=== PATIENT | female | born 1960 | race Caucasian/White ===

== ENCOUNTER 2020-07-08 19:38 | Inpatient (IN) | payer MEDICARE, OTHER ==
[~2020-07-08] VITALS: Ht 162.6 cm; Wt 84.8 kg
--- NOTE | 2020-07-08 19:43 | NUR ---
pt BIB RA93, appears to be in distress, c/o of 01/24 hip pain. MD Castro in room to examine patient. 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
--- NOTE | 2020-07-08 19:52 | NUR ---
electrical engineering technologist in room with patient for x-ray.
--- NOTE | 2020-07-08 20:28 | NUR ---
field crop technical officer in room to take patient to CT scan.
[2020-07-08] MEDS ORDERED: apidra (20:29)
[2020-07-08] MEDS ORDERED: OXYC5CAP18 PO (20:29)
--- NOTE | 2020-07-08 20:30 | NUR ---
CINTIA Kapadia called for patient room. Patient will be assigned to med-surg room 310.
[2020-07-08 20:32] LABS: BASOPHILS % (AUTO) 0.3 % (0.0-2.0); HEMATOCRIT 38.9 % (31.2-41.9); LYMPHOCYTES % (AUTO) 10.9 % (20.5-51.5); MEAN CORPUSCULAR HEMOGLOBIN 32.3 uug (24.7-32.8); MEAN CORPUSCULAR HGB CONC 33 g/dL (32.3-35.6); MEAN CORPUSCULAR VOLUME 96.8 fL (75.5-95.3); MONOCYTES # (AUTO) 0.6 K/uL (2.0-10.0); MONOCYTES % (AUTO) 6.8 % (0.0-11.0); NEUTROPHILS # (AUTO) 7.1 K/uL (1.8-8.9); PLATELET COUNT (AUTO) 189 K/uL (179-408); RED BLOOD CELL COUNT(AUTO) 4.02 MIL/uL (3.63-4.92); WHITE BLOOD COUNT (AUTO) 8.7 K/uL (3.8-11.8)
[2020-07-08 20:38] LABS: CREATININE 0.8 mg/dL (0.6-1.3); POTASSIUM 4.2 mmol/L (3.5-5.1)
--- NOTE | 2020-07-08 20:40 | NUR ---
Patient refused guillen catheter. MD Castro aware.
[2020-07-08 20:44] LABS: BILIRUBIN,DIRECT 0.1 mg/dL (0.0-0.2); BILIRUBIN,TOTAL 0.3 mg/dL (0.2-1.0); TOTAL PROTEIN, SERUM 6.5 g/dL (6.4-8.2)
[2020-07-08] MEDS ORDERED: MORPHINE SULFATE 2 MG/1 ML DISP.SYRIN ONE ×2 (21:17→22:30)
--- NOTE | 2020-07-08 21:28 | NUR ---
Paged Dr. Rutledge for ortho consult, pending call-back.
[2020-07-08] MEDS ORDERED: MORPHINE SULFATE 2 MG/1 ML DISP.SYRIN IV ONE ×2 (21:30→22:30)
--- NOTE | 2020-07-08 21:38 | NUR ---
Patient requested positional change to sit upright, OK'ed per MD Castro. Patient seated upright and cold pack applied to her left hip. Patient states relief.
--- NOTE | 2020-07-08 22:20 | NUR ---
Patient states feeling pain and nausea. MD Castro notified.
[2020-07-08] MEDS ORDERED: ONDANSETRON 4 MG/2 ML VIAL ONE (22:29)
[2020-07-08] MEDS ORDERED: ONDANSETRON 4 MG/2 ML VIAL IV ONE (22:30)
--- NOTE | 2020-07-08 22:34 | NUR ---
Dr. Rutledge paged for the third time, pending call-back.
--- NOTE | 2020-07-08 23:04 | NUR ---
[facility] medical group called, pending call-back from admitting doctor Dr. Chidi Engle.
--- NOTE | 2020-07-08 23:08 | NUR ---
Report given to CINTIA Lang, patient will be going to med/surg room 310 upon admission.
--- NOTE | 2020-07-09 00:08 | NUR ---
[facility] medical group called again, MD Fay toure, pending callback.
--- NOTE | 2020-07-09 00:13 | NUR ---
MD Aponte called back, call transferred to BOBBY Castro.
--- NOTE | 2020-07-09 00:30 | NUR ---
DURING ER REPORT, RN REPORTED THAT PATIENT IS REFUSING F/C INSERTION. ER WAS UNABLE TO GET A UA. PATIENT INFORMED THAT UA NEEDS TO BE COLLECTED. PATIENT IS REFUSING FOR F/C INSERTION. DISTRICT SALES LEADER NOTIFIED. PATIENT IS A/O X4.
--- NOTE | 2020-07-09 00:40 | NUR ---
Pt. admitted to medical-surgical unit room 310, under care of Dr. Aponte and RN Precious. Belongs List completed, paperwork with patient, transported via gurney to room.
[2020-07-09] MEDS ORDERED: MORPHINE SULFATE 2 MG/1 ML DISP.SYRIN IV PRN (00:45)
[2020-07-09] MEDS ORDERED: ACETAMINOPHEN 325 MG TABLET PO PRN (00:45)
[2020-07-09] MEDS ORDERED: INSULIN REGULAR, HUMAN 300 UNITS/3 ML VIAL SQ PRN (00:45)
[2020-07-09] MEDS ORDERED: DEXTROSE 50% 50 ML DISP.SYRIN IV PRN (00:45)
[2020-07-09] MEDS ORDERED: Z GUARD REMEDY PASTE 57 GM TUBE TOP PRN (00:45)
[2020-07-09] MEDS ORDERED: ZOLPIDEM 5 MG TABLET PO PRN (00:45)
--- NOTE | 2020-07-09 00:45 | NUR ---
RECEIVED PATIENT VIA GURNEY FROM ER. PATIENT IS A/O X4. C/O SEVERE PAIN IN LEFT HIP UPON ARRIVAL TO FLOOR. VS WNL. PATIENT GIVEN MORPHINE 4MG IV PER ROBOTYPE OPERATOR. DENIES ANY SOB. NO RESP. DISTRESS NOTED. H/L INTACT AND PATENT, NOTED TO LEFT FA #20 GAUGE. ORIENTED TO ROOM AND CALL LIGHT. CALL LIGHT IN REACH. ALL NEEDS ATTENDED. WILL CONTINUE TO MONITOR AND ASSESS.
[2020-07-09 01:32] VITALS: BP 123/53
[2020-07-09] MEDS: HYDROCODONE/APAP 5-325MG TABLET PO PRN ×4 (02:33→23:27)
--- NOTE | 2020-07-09 02:40 | NUR ---
RECEIVED CALL FROM DR. FARLEY. PATIENT WILL NEED AN "IM NAILING," BUT PATIENT NEEDS TO BE MEDICALLY CLEARED BEFORE SURGERY. MEDICAL APPOINTMENT SCHEDULER NOTIFIED. ALL NEEDS ATTENDED.
[2020-07-09] MEDS: BLOOD SUGAR DIAGNOSTIC 1 EACH STRIP VI SCH ×5 (03:10→21:02)
--- NOTE | 2020-07-09 03:15 | NUR ---
PATIENT AWAKE IN BED. PATIENT HAS INSULIN PUMP, NOT WORKING AT THIS TIME , "HER REMOTE FOR THE PUMP IS AT HOME." PATIENT REQUESTING FOR HER BS TO BE TAKEN. BS 291. PATIENT ASKING FOR "2 UNITS" OF INSULIN. CALLED OUT TO DR. JOHNSON FOR FURTHER ORDERS. ALL NEEDS ATTENDED. WILL CONTINUE TO MONITOR AND ASSESS.
[2020-07-09 04:03] VITALS: BP 124/59
--- NOTE | 2020-07-09 05:54 | NUR ---
PATIENT AWAKE IN BED. F/C INSERTED AND UA COLLECTED AND SENT TO LAB. VS WNL. PATIENT HAS BRUISING NOTED TO LEFT BUTTOCKS/HIP. PATIENT REFUSED FOR PICTURES TO BE TAKEN. WILL CONTINUE TO MONITOR AND ASSESS.
[2020-07-09 06:42] LABS: *BILIRUBIN,URIN NEGATIVE (NEGATIVE); *BLOOD, URINE NEGATIVE (NEGATIVE); *CLARITY,URINE CLEAR (CLEAR); *COLOR,URINE YELLOW (YELLOW); *KETONES,URINE NEGATIVE (NEGATIVE); *UROBILINOGEN,URINE 0.2 E.U./dl (NORMAL); LEUKOCYTE ESTERASE ,URINE NEGATIVE (NEGATIVE); NITRITE, URINE NEGATIVE (NEGATIVE); UGLUCOSE 2+ (NEGATIVE)
--- NOTE | 2020-07-09 07:30 | NUR ---
Patient is alert and oriented. No respiratory distress. LFA heplock intact and patent. Adan catheter intact and patent draining yellow urine. No hematuria noted. No complaint at this time. Kept comfortable. Safety precautions in place. Call light within reach. Will continue to monitor.
[2020-07-09] MEDS: INSULIN REGULAR, HUMAN 300 UNIT/3 ML VIAL SQ PRN ×3 (07:58→18:52)
[2020-07-09] MEDS: MORPHINE SULFATE 4 MG/1 ML DISP.SYRIN IV PRN ×4 (10:13→21:35)
--- NOTE | 2020-07-09 10:17 | NUR ---
Spoke to Harriet at surgery. Patient will have IM Nailing Left hip tomorrow at 0930, NPO midnight tonight. Patient is made aware and verbalized she will sign consent when Dr. Rutledge explains to her the procedure. Will continue to monitor.
[2020-07-09 11:28] LABS: *BILIRUBIN,URIN NEGATIVE (NEGATIVE); *BLOOD, URINE NEGATIVE (NEGATIVE); *CLARITY,URINE CLEAR (CLEAR); *COLOR,URINE YELLOW (YELLOW); *KETONES,URINE NEGATIVE (NEGATIVE); *UROBILINOGEN,URINE 0.2 E.U./dl (NORMAL); LEUKOCYTE ESTERASE ,URINE NEGATIVE (NEGATIVE); NITRITE, URINE NEGATIVE (NEGATIVE); UGLUCOSE 2+ (NEGATIVE)
[2020-07-09 11:53] VITALS: BP 113/47
[2020-07-09] MEDS: CEFTRIAXONE 1 G in IV DEXTROSE 5% 50 ML IV SCH (12:50)
[2020-07-09] MEDS ORDERED: FLUT1BLS4 IH (13:35)
[2020-07-09] MEDS: AZITHROMYCIN IV 500 MG in IV DEXTROSE 5% 250 ML IV SCH (14:04)
[2020-07-09] MEDS: ONDANSETRON 4 MG/2 ML VIAL IV PRN ×2 (14:37→21:03)
[2020-07-09 16:05] VITALS: BP 101/46
[2020-07-09] MEDS: MAGNESIUM HYDROXIDE 30 ML LIQUID UDC PO PRN (16:21)
--- NOTE | 2020-07-09 18:47 | NUR ---
Patient is alert and oriented. Able to make needs known. No respiratory distress. Due meds given and tolerated. Episode of nausea but relieved by Zofran. Patient spoke with Dr. Rutledge regarding IM Nailing of left hip fracture tomorrow, procedure was explained. Patient signed consent form. To be npo after midnight tonight, patient verbalized understanding. Patient kept comfortable. Needs attended. Call light within reach. Will continue to monitor and endorse accordingly.
[2020-07-09] MEDS ORDERED: FLUTICASONE/VILANTEROL 1 EACH BLST.W.DEV INH SCH (19:00)
[2020-07-09] MEDS ORDERED: OMEP20TA20 PO (19:45)
[2020-07-09 20:04] VITALS: BP 116/53
--- NOTE | 2020-07-09 20:30 | NUR ---
Pt is complaining of acid reflux, referred to Dr Duarte; ordered Protonix IV to start now; also ordered IVF from midnight; pt refused IVF with dextrose at this time;
[2020-07-09] MEDS: PANTOPRAZOLE SODIUM 40 MG VIAL IV SCH (21:02)
--- NOTE | 2020-07-09 21:30 | NUR ---
Pt refused to have her sugar taken by the [facility]'s glucometer; she stated her 2100H sugar in her continuous glucometer is 118.
[2020-07-10] VITALS (8 sets, daily range): BP systolic 103–139; BP diastolic 38–71
[2020-07-10] MEDS ORDERED: IV 1/2NS 1000 ML 1,000 ML IV PRN
[2020-07-10] MEDS ORDERED: DEXTROSE 50% 50 ML DISP.SYRIN IV PRN ×2 (01:15→16:15)
[2020-07-10] MEDS: MORPHINE SULFATE 4 MG/1 ML DISP.SYRIN IV PRN ×2 (01:41→06:02)
--- NOTE | 2020-07-10 04:27 | NUR ---
pt's blood sugar with her continuous blood sugar monitoring is 70 and felt she is hypoglycemic; checked her fingerstick sugar is 92 and now pt requesting that her IVF to have Dextrose; referred to BHAKTI Macias and changed her IVF to D5 1/2 NS at same rate ie 60 ml/hr.
[2020-07-10] MEDS ORDERED: IV D5 1/2 NS 1000 ML 1,000 ML IV PRN (04:30)
--- NOTE | 2020-07-10 05:33 | NUR ---
Pt her refused her insulin pump removed and wants to keep it on; will endorse to next shift to refer to pharmacy regarding hospital policy on insulin pump.
[2020-07-10] MEDS ORDERED: INSULIN REGULAR, HUMAN 300 UNIT/3 ML VIAL SQ PRN (06:00)
[2020-07-10] MEDS: ONDANSETRON 4 MG/2 ML VIAL IV PRN ×2 (06:02→16:48)
[2020-07-10] MEDS: BLOOD SUGAR DIAGNOSTIC 1 EACH STRIP VI SCH ×4 (06:06→21:07)
[2020-07-10 07:20] LABS: BASOPHILS % (AUTO) 0.4 % (0.0-2.0); EOSINOPHILS % (AUTO) 0.2 % (0.0-7.0); HEMATOCRIT 31.6 % (31.2-41.9); LYMPHOCYTES % (AUTO) 19.5 % (20.5-51.5); MEAN CORPUSCULAR HEMOGLOBIN 33.8 uug (24.7-32.8); MEAN CORPUSCULAR HGB CONC 35 g/dL (32.3-35.6); MEAN CORPUSCULAR VOLUME 97.8 fL (75.5-95.3); MONOCYTES # (AUTO) 0.5 K/uL (2.0-10.0); MONOCYTES % (AUTO) 10.3 % (0.0-11.0); NEUTROPHILS # (AUTO) 3.5 K/uL (1.8-8.9); NEUTROPHILS % (AUTO) 69.6 % (38.5-71.5); PLATELET COUNT (AUTO) 138 K/uL (179-408); RED BLOOD CELL COUNT(AUTO) 3.23 MIL/uL (3.63-4.92)
[2020-07-10 07:40] LABS: CREATININE 0.8 mg/dL (0.6-1.3); MAGNESIUM 2.4 mg/dL (1.8-2.4); POTASSIUM 4.1 mmol/L (3.5-5.1)
[2020-07-10 07:47] LABS: HEMOGLOBIN 10.9 g/dL (10.9-14.3)
--- NOTE | 2020-07-10 08:00 | NUR ---
fluticasone not given patient in operating room
[2020-07-10 08:54] LABS: THYROID STIMULATING HORMONE 4.082 mIU/mL (0.358-3.740)
[2020-07-10] MEDS: BREO ELIPTA IH SCH (09:00)
[2020-07-10] MEDS ORDERED: FENTANYL CITRATE 250 MCG/5 ML AMPUL ONE (09:05)
[2020-07-10] MEDS ORDERED: MIDAZOLAM HCL 2 MG/2 ML VIAL ONE (09:05)
[2020-07-10] MEDS ORDERED: ROCURONIUM BROMIDE 50 MG/5 ML VIAL ONE (09:06)
[2020-07-10] MEDS ORDERED: VANCOMYCIN 1000 MG VIAL ONE (10:36)
[2020-07-10] MEDS ORDERED: HYDROMORPHONE 1 MG/1 ML DISP.SYRIN ONE (11:33)
[2020-07-10] MEDS ORDERED: ONDANSETRON 4 MG/2 ML VIAL ONE ×2 (11:34→11:51)
[2020-07-10] MEDS ORDERED: PROPOFOL 200 MG/20 ML BOTTLE ONE (11:51)
[2020-07-10] MEDS ORDERED: CEFAZOLIN 1 G VIAL ONE (11:51)
[2020-07-10] MEDS ORDERED: METOCLOPRAMIDE HCL 10 MG/2 ML VIAL ONE (11:51)
[2020-07-10] MEDS ORDERED: NEOSTIGMINE METHYLSULFATE 10 MG/10 ML VIAL ONE (11:51)
[2020-07-10] MEDS ORDERED: IRR STERIL WATER FOR IRR 1000 ML BOTTLE ONE (11:51)
[2020-07-10] MEDS ORDERED: GLYCOPYRROLATE 0.2 MG/ML VIAL ONE (11:51)
[2020-07-10] MEDS ORDERED: IV NORMAL SALINE 1000 ML BAG ONE (11:51)
[2020-07-10] MEDS ORDERED: IV D5W-0.45% NS +20 KCL 1,000 ML IV ONE (12:04)
--- NOTE | 2020-07-10 12:57 | NUR ---
BACK FROM SURGERY, RECEIVED REPORT FROM OR NURSE. PATIENT AWAKE ALERT AND VERBALLY RESPONSIVE, C/O BEARABLE PAIN DURING TURNING. CONTINUE POST-OP ARE POST IM NAILING
[2020-07-10] MEDS: CEFTRIAXONE 1 G in IV DEXTROSE 5% 50 ML IV SCH (13:15)
[2020-07-10] MEDS: AZITHROMYCIN IV 500 MG in IV DEXTROSE 5% 250 ML IV SCH (13:15)
[2020-07-10] MEDS: IV D5W-0.45% NS +20 KCL 1,000 ML IV PRN (13:44)
[2020-07-10] MEDS: INSULIN REGULAR, HUMAN 300 UNIT/3 ML VIAL SQ PRN (16:50)
[2020-07-10] MEDS: MORPHINE SULFATE 2 MG/1 ML DISP.SYRIN IV PRN ×2 (18:01→22:21)
--- NOTE | 2020-07-10 19:26 | NUR ---
pt resting in bed awake alert and oriented x4, pt on 2L O2 via NC, no signs or symptoms of distress noted, no reports of pain. pt on regular diet, guillen in place. pt has IV access on the right FA 18g IVF infusing D5 1/2NS+20KCL at 75cc. PT evaluation 25% non weight bearing on left hip. Bed in low and locked position, bed alarm on, fall precautions in place, call light within reach, will endorse to oncoming nurse.
[2020-07-10] MEDS: PANTOPRAZOLE SODIUM 40 MG VIAL IV SCH (21:07)
[2020-07-10] MEDS: GABAPENTIN 300 MG CAPSULE PO SCH (21:08)
[2020-07-10] MEDS: INSULIN REGULAR, HUMAN 300 UNITS/3 ML VIAL SQ PRN (21:09)
--- NOTE | 2020-07-10 21:30 | NUR ---
PATIENT ALERT ORIENTED, NO SOB NO CHEST PAIN, PATIENT REMOVES HER OXYGEN, STATED "I DON'T NEED IT", PATIENT GIVEN INCENTIVE INSPIROMETER, GIVEN INSTRUCTION TO TAKE DEEP BREATHS AT 10 BREATH TOLERATED, TOOK ONLY 2 BREATHS, AND REFUSED TO CONTINUE, WILL CONT TO ENCOURAGE TO USE. CONT ON PAIN MANAGEMENT.
--- NOTE | 2020-07-10 21:30 | NUR ---
PATIENT REFUSED SCD ON R LEG, REFUSED LEFT HEEL ELEVATED SLIGHTLY TO PREVENT PRESSURE SORE, STRONGLY REFUSED, YELLS AND SCREAMS. PATIENT WAS TAUGHT TO MOVE HER LEFT FEET MUCH POSSIBLE TO PREVENT SORES ON HEEL.
[2020-07-10] MEDS: LIDOCAINE 5% PATCH TD SCH (23:19)
--- NOTE | 2020-07-10 23:19 | NUR ---
lidoderm path bar code un scannable, enter manually.
--- NOTE | 2020-07-10 23:28 | NUR ---
PATIENT HAS HER OWN OTC PAIN PATCH AND CREAM, NOTIFY BREN SAMANO NP OK THE PATIENT REQUEST FOR OTC MEDICATIONS. MEDICATIONS ARE LIDODERM PATCH 5% AND ATUL/KETO/ LIDO2/20/5%.
[2020-07-11] MEDS: MORPHINE SULFATE 2 MG/1 ML DISP.SYRIN IV PRN ×3 (02:20→09:14)
--- NOTE | 2020-07-11 02:50 | NUR ---
PATIENT STILL COMPLAIN OF 7/10 PAIN ON LEFT HIP AND LEFT KNEE, REPOSITION, CONTINUE TO PLACE ICE ON AFFECTED AREA, WITH SOME RELIEF, 5/10 PAIN SCALE, CONT TO MONITOR.
[2020-07-11] MEDS: HYDROCODONE/APAP 10-325 MG TABLET PO PRN (03:20)
[2020-07-11 04:12] VITALS: BP 116/47
[2020-07-11] MEDS: IV D5W-0.45% NS +20 KCL 1,000 ML IV PRN ×2 (05:02→21:10)
[2020-07-11 06:22] LABS: BASOPHILS % (AUTO) 0.2 % (0.0-2.0); HEMATOCRIT 26.1 % (31.2-41.9); HEMOGLOBIN 8.9 g/dL (10.9-14.3); LYMPHOCYTES # (AUTO) 0.6 K/uL (20.0-40.0); LYMPHOCYTES % (AUTO) 10.6 % (20.5-51.5); MEAN CORPUSCULAR HEMOGLOBIN 33.3 uug (24.7-32.8); MEAN CORPUSCULAR HGB CONC 34 g/dL (32.3-35.6); MEAN CORPUSCULAR VOLUME 97.7 fL (75.5-95.3); MONOCYTES # (AUTO) 0.6 K/uL (2.0-10.0); MONOCYTES % (AUTO) 9.9 % (0.0-11.0); NEUTROPHILS # (AUTO) 4.6 K/uL (1.8-8.9); NEUTROPHILS % (AUTO) 79.3 % (38.5-71.5); PLATELET COUNT (AUTO) 146 K/uL (179-408); RED BLOOD CELL COUNT(AUTO) 2.67 MIL/uL (3.63-4.92); WHITE BLOOD COUNT (AUTO) 5.8 K/uL (3.8-11.8)
[2020-07-11] MEDS: GABAPENTIN 300 MG CAPSULE PO SCH ×3 (06:32→21:01)
[2020-07-11] MEDS: BLOOD SUGAR DIAGNOSTIC 1 EACH STRIP VI SCH ×4 (06:44→21:08)
[2020-07-11 06:49] LABS: CREATININE 0.7 mg/dL (0.6-1.3); MAGNESIUM 2.3 mg/dL (1.8-2.4); PHOSPHOROUS 3.2 mg/dL (2.5-4.9); POTASSIUM 4.7 mmol/L (3.5-5.1)
[2020-07-11] MEDS: INSULIN REGULAR, HUMAN 300 UNIT/3 ML VIAL SQ PRN ×3 (07:47→21:08)
--- NOTE | 2020-07-11 08:00 | NUR ---
AWAKE ALERT AND VERBALLY RESPONSIVE NO SS OF CHEST PAIN OR SOB. 100% ON RA. LEFT HIP INCISION WITH SCANT AMOUNT OF SEROUS DRAINAGE. GOOD PEDAL PULSES, STRONG AND PALPABLE. CONTINUE COLD COMPRESS AND PAIN MANAGEMENT OF MORPHINE WITH GOOD RELIEF. AWAITING PHYSICAL THERAPY FOR EVAL
[2020-07-11] MEDS: LIDOCAINE 5% PATCH TD SCH (09:09)
[2020-07-11] MEDS: ONDANSETRON 4 MG/2 ML VIAL IV PRN (09:10)
[2020-07-11] MEDS: BREO ELIPTA IH SCH (09:13)
[2020-07-11 10:25] LABS: IRON, SERUM 11 ug/dL (50-175)
--- NOTE | 2020-07-11 10:30 | NUR ---
SEEN BY PHYSICAL THERAPIST FOR EVAL POST-OP DAY1, PATIENT REQUIRES PREMEDICATION PRIOR TO THERAPY WITH HELP. SEE PT NOTES
--- NOTE | 2020-07-11 11:21 | NUR ---
PATIENT REFUSED TO USE OUR BLOOD SUGAR MACHINE, PATIENT HAS GLUCOSE SENSOR LEFT DELTOID AREA. SUGAR READS 107 FOR NOON TIME
[2020-07-11 12:00] VITALS: BP 124/46
[2020-07-11] MEDS: CEFTRIAXONE 1 G in IV DEXTROSE 5% 50 ML IV SCH (12:06)
[2020-07-11] MEDS: PANTOPRAZOLE SODIUM 40 MG TABLET.DR PO SCH (12:06)
[2020-07-11] MEDS: AZITHROMYCIN 250 MG TABLET PO SCH (12:07)
[2020-07-11] MEDS ORDERED: LIDOCAINE 5% PATCH TD PRN ×3 (16:00→16:15)
[2020-07-11 16:03] VITALS: BP 136/87
[2020-07-11 20:03] VITALS: BP 118/52
[2020-07-12] MEDS: ONDANSETRON 4 MG/2 ML VIAL IV PRN ×2 (01:20→17:31)
[2020-07-12] MEDS: MORPHINE SULFATE 2 MG/1 ML DISP.SYRIN IV PRN (01:20)
--- NOTE | 2020-07-12 03:33 | NUR ---
Pt in bed resting currently. Denies pain or SOB. Pt has glucose sensor on left deltoid and refused an accucheck at the beginning of my shift. Sensor gave 163 as glucose reading. Pt refused her insulin. Denies being dizzy or having SOB. Pt c/o pain at 0100H and was given Morphine 2mg. Tolerated medication well. Pt is on RA sating at 96%. Bed is locked and in lowest position, call light is within reach. No other issues or concerns at this time.
[2020-07-12 04:06] VITALS: BP 111/54
[2020-07-12] MEDS: GABAPENTIN 300 MG CAPSULE PO SCH ×3 (05:24→21:09)
[2020-07-12] MEDS: PANTOPRAZOLE SODIUM 40 MG TABLET.DR PO SCH (06:23)
--- NOTE | 2020-07-12 06:30 | NUR ---
Pt refused Tylenol for temp 99.3. Temp rechecked and is now 97.1
[2020-07-12] MEDS: BLOOD SUGAR DIAGNOSTIC 1 EACH STRIP VI SCH ×4 (06:31→20:47)
[2020-07-12 07:14] LABS: BASOPHILS % (AUTO) 0.3 % (0.0-2.0); EOSINOPHILS % (AUTO) 0.1 % (0.0-7.0); HEMATOCRIT 21.8 % (31.2-41.9); HEMOGLOBIN 7.5 g/dL (10.9-14.3); LYMPHOCYTES # (AUTO) 0.7 K/uL (20.0-40.0); LYMPHOCYTES % (AUTO) 15.7 % (20.5-51.5); MEAN CORPUSCULAR HEMOGLOBIN 33.3 uug (24.7-32.8); MEAN CORPUSCULAR HGB CONC 34 g/dL (32.3-35.6); MEAN CORPUSCULAR VOLUME 96.9 fL (75.5-95.3); MONOCYTES # (AUTO) 0.5 K/uL (2.0-10.0); MONOCYTES % (AUTO) 11.8 % (0.0-11.0); NEUTROPHILS # (AUTO) 3.2 K/uL (1.8-8.9); NEUTROPHILS % (AUTO) 72.1 % (38.5-71.5); PLATELET COUNT (AUTO) 127 K/uL (179-408); WHITE BLOOD COUNT (AUTO) 4.4 K/uL (3.8-11.8)
[2020-07-12 07:45] LABS: RED BLOOD CELL COUNT(AUTO) 2.25 MIL/uL (3.63-4.92)
[2020-07-12] MEDS: HYDROCODONE/APAP 10-325 MG TABLET PO PRN ×4 (07:49→20:47)
[2020-07-12] MEDS: LIDOCAINE 5% PATCH TD SCH (07:49)
[2020-07-12 07:53] LABS: CREATININE 0.6 mg/dL (0.6-1.3); POTASSIUM 4.3 mmol/L (3.5-5.1)
[2020-07-12] MEDS: BREO ELIPTA IH SCH (09:02)
[2020-07-12] MEDS: CEFTRIAXONE 1 G in IV DEXTROSE 5% 50 ML IV SCH (11:09)
[2020-07-12] MEDS: INSULIN REGULAR, HUMAN 300 UNIT/3 ML VIAL SQ PRN ×2 (11:25→16:09)
[2020-07-12 12:00] VITALS: BP 114/41
[2020-07-12] MEDS: MAGNESIUM HYDROXIDE 30 ML LIQUID UDC PO PRN (12:59)
[2020-07-12] MEDS: AZITHROMYCIN 250 MG TABLET PO SCH (12:59)
[2020-07-12] MEDS: SOD FERRIC GLUC COMPLX/SUCROSE 125 MG in IV NORMAL SALINE 100 ML IV SCH (13:58)
[2020-07-12 16:10] VITALS: BP 110/55
[2020-07-12 20:18] VITALS: BP 110/44
[2020-07-12] MEDS: BISACODYL 10 MG SUPP.RECT RC SCH (20:38)
[2020-07-12] MEDS: INSULIN REGULAR, HUMAN 300 UNITS/3 ML VIAL SQ PRN (20:48)
--- NOTE | 2020-07-12 21:31 | NUR ---
Temp was 99.9 at 2000, reassessed again at 2029 and was 98.0
[2020-07-13] MEDS: HYDROCODONE/APAP 10-325 MG TABLET PO PRN ×3 (01:28→13:31)
[2020-07-13 05:12] VITALS: BP 104/53
[2020-07-13] MEDS: GABAPENTIN 300 MG CAPSULE PO SCH ×2 (05:57→13:08)
[2020-07-13] MEDS: PANTOPRAZOLE SODIUM 40 MG TABLET.DR PO SCH (06:05)
--- NOTE | 2020-07-13 06:32 | NUR ---
Pt slept intermittently throughout the night. Denies SOB. C/o pain periodically and was able to be managed with PO [place] and ice packs. Pt is able to use bed norris with assistance, able to make all needs known. IV site is patent. Pt self monitors glucose with device on left deltoid, stated that her blood sugar was 48 at 0230H. Was provided with orange juice and crackers. Denied feeing SOB or dizziness. Glucose rechecked with our monitor, was 88. Last glucose checked this morning was 169. Bed is locked and in lowest position, call light is within reach. No other issues or concerns at this time. Will endorse to day shift.
[2020-07-13] MEDS: BLOOD SUGAR DIAGNOSTIC 1 EACH STRIP VI SCH ×2 (06:42→11:06)
[2020-07-13 07:06] LABS: BASOPHILS % (AUTO) 0.5 % (0.0-2.0); EOSINOPHILS % (AUTO) 0.1 % (0.0-7.0); HEMATOCRIT 21.9 % (31.2-41.9); HEMOGLOBIN 7.6 g/dL (10.9-14.3); LYMPHOCYTES # (AUTO) 0.9 K/uL (20.0-40.0); LYMPHOCYTES % (AUTO) 18.4 % (20.5-51.5); MEAN CORPUSCULAR HEMOGLOBIN 33.8 uug (24.7-32.8); MEAN CORPUSCULAR HGB CONC 35 g/dL (32.3-35.6); MEAN CORPUSCULAR VOLUME 96.8 fL (75.5-95.3); MONOCYTES # (AUTO) 0.5 K/uL (2.0-10.0); MONOCYTES % (AUTO) 10.9 % (0.0-11.0); NEUTROPHILS # (AUTO) 3.3 K/uL (1.8-8.9); NEUTROPHILS % (AUTO) 70.1 % (38.5-71.5); PLATELET COUNT (AUTO) 143 K/uL (179-408); WHITE BLOOD COUNT (AUTO) 4.8 K/uL (3.8-11.8)
[2020-07-13 07:20] LABS: RED BLOOD CELL COUNT(AUTO) 2.27 MIL/uL (3.63-4.92)
[2020-07-13 07:21] LABS: BILIRUBIN,TOTAL 0.5 mg/dL (0.2-1.0); CREATININE 0.6 mg/dL (0.6-1.3); MAGNESIUM 2.2 mg/dL (1.8-2.4); PHOSPHOROUS 3.6 mg/dL (2.5-4.9); POTASSIUM 4.2 mmol/L (3.5-5.1)
--- NOTE | 2020-07-13 08:10 | NUR ---
ATTEMPTED TO COVER HER BLOOD SUGAR OF 169 BUT SHE STATED THAT PER HER FREE STYLE PUMP THAT SHE IS WEARING IS 125 AND SHE DID NOT WANT ANY COVERAGE AT THIS TIME PATIENT IS ALERT AND ORIENTED STATED WANTS TO SLEEP A LITTLE BIT MORE ON ROOM AIR WITH NO SOB CALL LIGHTS AND PERSONAL BELONGINGS ARE WITHIN EASY REACH AT THIS TIME WILL CONTINUE TO OBSERVE DENIES PAIN OR DISCOMFORTS AT THIS TIME
[2020-07-13] MEDS: BISACODYL 10 MG SUPP.RECT RC SCH (08:42)
[2020-07-13] MEDS: LIDOCAINE 5% PATCH TD SCH (08:42)
[2020-07-13] MEDS: BREO ELIPTA IH SCH (08:51)
[2020-07-13] MEDS: ONDANSETRON 4 MG/2 ML VIAL IV PRN (09:38)
--- NOTE | 2020-07-13 11:07 | NUR ---
PATIENT IS WEARING OWN BLOOD SUGAR MACHINE AND REFUSED TO BE CHECKED WITH THE [facility] ACCUCHECK MACHINE AND SHE CHECKED HER GLUCOSE LEVEL HERSELF WITH HER OWN FREE STYLE MACHINE AND STATED THAT IT IS 104 NO COVERAGE NEEDED AT THIS TIME.
[2020-07-13] MEDS ORDERED: MAG HYDROX/AL HYDROX/SIMETH 30 ML LIQUID UDC PO PRN (11:30)
--- NOTE | 2020-07-13 11:42 | NUR ---
PATIENT COMPLAINING THAT SHE FEELS LIKE HER STOMACH ACID IS IN HER THROAT ASKING FOR PROTONIX BUT SHE DID RECEIVE HER PROTONIX EARLIER THIS AM SO I CALLED DR FARRELL WITH ORDER TO START MYLANTA AND GIVEN ORDERED WILL OBSERVE.
[2020-07-13 11:49] VITALS: BP 99/44
[2020-07-13] MEDS: CEFTRIAXONE 1 G in IV DEXTROSE 5% 50 ML IV SCH (12:21)
[2020-07-13] MEDS: AZITHROMYCIN 250 MG TABLET PO SCH (12:21)
[2020-07-13] MEDS: SOD FERRIC GLUC COMPLX/SUCROSE 125 MG in IV NORMAL SALINE 100 ML IV SCH (13:27)
--- NOTE | 2020-07-13 13:39 | NUR ---
MEDICATED PO FOR C/O PAIN ORDERED WAS SEEN BY THE PHYSICAL THERAPY FOR THERAPEUTIC EXERCISES PATIENT HAVING DIFFICULT TIME MAINTAINING 25 PERCENT WEIGHT BEARING ORDERED WILL CONTINUE TO OBSERVE.
[2020-07-13 16:02] VITALS: BP 115/46
--- NOTE | 2020-07-13 16:12 | NUR ---
DR FARRELL HERE TO SEE PATIENT WITH ORDER TO DISCHARGE PATIENT TO ACUTE REHAB UNIT THIS [facility] AND NOTED
[2020-07-13] MEDS ORDERED: MAGN400O6 PO (16:51)
[2020-07-13] MEDS ORDERED: MENT71OI TOP (16:51)
[2020-07-13] MEDS ORDERED: ACET325T53 PO (16:51)
[2020-07-13] MEDS ORDERED: BISA10SU12 RC (16:51)
[2020-07-13] MEDS ORDERED: ZOLP5TAB8 PO (16:51)
[2020-07-13] MEDS ORDERED: Gabapentin PO (16:51)
[2020-07-13] MEDS ORDERED: LACT1TAB12 PO (16:51)
[2020-07-13] MEDS ORDERED: PANT40TA2 PO (16:51)
[2020-07-13] MEDS ORDERED: HYDR-3980 PO (16:51)
[2020-07-13] MEDS ORDERED: LIDO30AD10 TD ×2 (16:51)
[2020-07-13] MEDS ORDERED: Patient May Use Own Med- Md Ok IH (16:51)
[2020-07-13] MEDS ORDERED: MAG30ORA PO (16:51)
[2020-07-13] MEDS ORDERED: MULT-594 PO (16:51)
--- NOTE | 2020-07-13 17:29 | NUR ---
AWAITING FOR FINAL DISCHARGE ORDERS.
--- NOTE | 2020-07-13 18:45 | NUR ---
PATIENT DISCHARGED WITH DISCHARGE INSTRUCTIONS PATIENT WILL BE ACUTE REHAB BUT SAME ROOM AND SHE EXPRESSED UNDERSTANDING HER INSULIN TAKEN AND SENT TO THE PHARMACY PER PROTOCOL
== END 2020-07-13 19:40 | DRG 480 ==
LOC: ER 19:43 → MEDSURG3 07-09 00:26
PROVIDERS: ADMIT Internal Medicine; ATTEND Internal Medicine
PROC: 0QS706Z Reposition Left Upper Femur with Intramedullary Internal Fixation Device, Open Approach (ICD-10-PCS; principal; 2020-07-10)
DX: S72.142A Displaced intertrochanteric fracture of left femur, initial encounter for closed fracture (principal); J18.9 Pneumonia, unspecified organism; D68.69 Other thrombophilia; W10.9XXA Fall (on) (from) unspecified stairs and steps, initial encounter; Y92.89 Other specified places as the place of occurrence of the external cause; J45.909 Unspecified asthma, uncomplicated; E10.65 Type 1 diabetes mellitus with hyperglycemia; Z96.41 Presence of insulin pump (external) (internal); E66.9 Obesity, unspecified; Z79.4 Long term (current) use of insulin; Z20.822 Contact with and (suspected) exposure to COVID-19; G89.29 Other chronic pain; Z88.2 Allergy status to sulfonamides; K21.9 Gastro-esophageal reflux disease without esophagitis; D64.9 Anemia, unspecified; Z98.1 Arthrodesis status; Z68.32 Body mass index [BMI] 32.0-32.9, adult
CPT/HCPCS: 36415; 51702; 70030-TC; 71045; 72192; 73502; 73503; 73551; 73560; 83550; 83735; 84100; 84443; 85025; 85730; 86850; 86900; 86901; 87086; 93005; A4217; A4649; A4663; C1713; C9113; G0378; J0456; J0690; J0696; J1170; J1815; J2250; J2270; J2405; J2765; J2916; J3010; J3370; J3490; J7030; J7050; J7060; Q0144; U0003

== ENCOUNTER 2020-07-13 14:55 | Inpatient (IN) | payer MEDICARE, OTHER ==
[~2020-07-13] VITALS: Ht 162.6 cm; Wt 84.8 kg
[~2020-07-13 14:55] MED LIST: FLUT1BLS4 IH; OMEP20TA20 PO; OXYC5CAP18 PO; apidra
[2020-07-13] MEDS ORDERED: ACET325T53 PO (16:51)
[2020-07-13] MEDS ORDERED: MULT-594 PO (16:51)
[2020-07-13] MEDS ORDERED: Gabapentin PO (16:51)
[2020-07-13] MEDS ORDERED: BISA10SU12 RC (16:51)
[2020-07-13] MEDS ORDERED: ZOLP5TAB8 PO (16:51)
[2020-07-13] MEDS ORDERED: LACT1TAB12 PO (16:51)
[2020-07-13] MEDS ORDERED: MENT71OI TOP (16:51)
[2020-07-13] MEDS ORDERED: LIDO30AD10 TD ×2 (16:51)
[2020-07-13] MEDS ORDERED: Patient May Use Own Med- Md Ok IH (16:51)
[2020-07-13] MEDS ORDERED: HYDR-3980 PO (16:51)
[2020-07-13] MEDS ORDERED: MAGN400O6 PO (16:51)
[2020-07-13] MEDS ORDERED: MAG30ORA PO (16:51)
[2020-07-13] MEDS ORDERED: PANT40TA2 PO (16:51)
[2020-07-13] MEDS ORDERED: Z GUARD REMEDY PASTE 57 GM TUBE TOP PRN ×2 (20:00→20:15)
--- NOTE | 2020-07-13 20:00 | NUR ---
Received patient from Telemetry to ARU. Pt AAOx4. No s/s of acute distress noted at this time. Pt on RA denies SOB. C/o left leg pain, will administer pain relief medication per order. Left hip dressing intact. Pt refused dressing change. Safety measures and fall precautions in place. Bed locked, in low position, and alarm on. Will continue with plan of care.
[2020-07-13] MEDS ORDERED: LIDOCAINE 5% PATCH TD PRN (20:15)
[2020-07-13] MEDS ORDERED: MAGNESIUM HYDROXIDE 30 ML LIQUID UDC PO PRN (20:15)
[2020-07-13] MEDS ORDERED: ZOLPIDEM 5 MG TABLET PO PRN (20:15)
[2020-07-13] MEDS ORDERED: MAG HYDROX/AL HYDROX/SIMETH 30 ML LIQUID UDC PO PRN (20:15)
[2020-07-13 20:27] VITALS: BP 115/48
[2020-07-13] MEDS: CULTURELLE CAPSULE PO SCH (20:54)
[2020-07-13] MEDS: HYDROCODONE/APAP 10-325 MG TABLET PO PRN (20:55)
[2020-07-13] MEDS: GABAPENTIN 300 MG CAPSULE PO SCH (21:10)
[2020-07-13] MEDS: ONDANSETRON HCL 4 MG TABLET PO PRN (21:56)
[2020-07-14] MEDS: HYDROCODONE/APAP 10-325 MG TABLET PO PRN ×5 (03:09→21:38)
[2020-07-14 05:56] VITALS: BP 109/46
[2020-07-14] MEDS: PANTOPRAZOLE SODIUM 40 MG TABLET.DR PO SCH (06:22)
[2020-07-14] MEDS: GABAPENTIN 300 MG CAPSULE PO SCH ×3 (06:22→21:38)
[2020-07-14 08:00] VITALS: BP 119/52
--- NOTE | 2020-07-14 08:45 | NUR ---
RECEIVED PATIENT IN BED AWAKE ALERT AND ORIENTED C/O SEVERE HIP PAIN MEDICATED WITH NORCO ORDERED ICE PACK APPLIED PATIENT PICKED UP BY BED FOR CT LOWER EXT ORDERED.LEFT HIP WITH DRESSING INTACT ON ROOM AIR WITH NO SHORTNESS OF BREATH AT THIS TIME WILL CONTINUE TO OBSERVE.
[2020-07-14] MEDS: MULTIVITAMINS,THERAPEUTIC TABLET PO SCH (08:46)
[2020-07-14] MEDS: CULTURELLE CAPSULE PO SCH ×2 (08:46→21:38)
[2020-07-14] MEDS: BISACODYL 10 MG SUPP.RECT RC SCH ×2 (08:46→11:03)
[2020-07-14] MEDS: FLUTICASONE/VILANTEROL 1 EACH BLST.W.DEV INH SCH (08:46)
[2020-07-14] MEDS: LIDOCAINE 5% PATCH TD SCH (08:48)
--- NOTE | 2020-07-14 09:05 | NUR ---
PATIENT RETURNED BACK TO HER ROOM AFTER THE CT DONE.
[2020-07-14] MEDS: ONDANSETRON HCL 4 MG TABLET PO PRN (09:24)
[2020-07-14 11:14] VITALS: BP 126/55
--- NOTE | 2020-07-14 12:43 | NUR ---
PATIENT IS SCHEDULED FOR PHYSICAL THERAPY AT 1300 PER THE PT SO SHE IS PREMEDICATED WITH NORCO ORDERED MADE COMFORTABLE WILL OBSERVE
--- NOTE | 2020-07-14 14:30 | NUR ---
CONTINUE WITH PHYSICAL THERAPEUTIC EXERCISES REQUIRING MAX ASSIST FOR TRANSFERS IN BED MADE COMFORTABLE CALL LIGHTS AND HER PERSONAL BELONGINGS ARE WITHIN EASY REACH AT THIS TIME.
[2020-07-14 15:28] VITALS: BP 102/48
--- NOTE | 2020-07-14 17:23 | NUR ---
STATED C/O PAIN LEFT HIP MEDICATED WITH NORCO ORDERED DINNER SERVED AND PATIENT IS EATING AT THIS TIME.
--- NOTE | 2020-07-14 18:11 | NUR ---
DR FARRELL HERE TO SEE PATIENT WITH NO NEW ORDERS AT THIS TIME.
[2020-07-14 20:14] VITALS: BP 101/48
[2020-07-14] MEDS: LIDOCAINE 5% PATCH TD PRN (22:18)
[2020-07-15] MEDS: ACETAMINOPHEN 325 MG TABLET PO PRN ×2 (04:59→21:07)
[2020-07-15] MEDS: GABAPENTIN 300 MG CAPSULE PO SCH ×3 (05:00→21:00)
[2020-07-15 05:59] VITALS: BP 112/52
[2020-07-15] MEDS: PANTOPRAZOLE SODIUM 40 MG TABLET.DR PO SCH ×2 (06:06→07:00)
--- NOTE | 2020-07-15 06:58 | NUR ---
Patient slept well. AAOx4. No s/s of acute distress noted at this time. Pt on RA denies SOB. Left hip incision dressing clean and intact, no signs of drainage noted. All patient needs were made known, met and attended to. Safety measures in place and will endorse to oncoming nurse.
[2020-07-15 07:30] VITALS: BP 109/50
[2020-07-15] MEDS: MULTIVITAMINS,THERAPEUTIC TABLET PO SCH (08:49)
[2020-07-15] MEDS: CULTURELLE CAPSULE PO SCH ×2 (08:49→20:55)
[2020-07-15] MEDS: ONDANSETRON HCL 4 MG TABLET PO PRN (08:49)
[2020-07-15] MEDS: HYDROCODONE/APAP 10-325 MG TABLET PO PRN ×3 (08:50→18:19)
--- NOTE | 2020-07-15 08:50 | NUR ---
RECEIVED PATIENT IN BED AWAKE ALERT AND ORIENTED STATED WANTS PAIN AND NAUSEA MEDICATIONS GIVEN ORDERED MADE COMFORTABLE ON ROOM AIR WITH NO SHORTNESS OF BREATH AT THIS TIME LEFT HIP WITH DRESSING INTACT WITH NO DRAINAGE AT THIS TIME.CALL LIGHTS AND PERSONAL BELONGINGS ARE WITHIN EASY REACH WILL CONTINUE TO OBSERVE.
[2020-07-15] MEDS: FLUTICASONE/VILANTEROL 1 EACH BLST.W.DEV INH SCH (08:52)
[2020-07-15] MEDS: BISACODYL 10 MG SUPP.RECT RC SCH (09:04)
[2020-07-15] MEDS: LIDOCAINE 5% PATCH TD SCH (09:04)
--- NOTE | 2020-07-15 09:43 | NUR ---
PATIENT HAS AN ORDER FOR DOPPLER LEFT LOWER EXT SINCE YESTERDAY THAT HAS NOT BEEN DONE YET SO I CALLED RADIOLOGY SPOKE TO BRYAN AND HE STATED THAT DOMENICO IS NOT HERE YET SO HE GAVE ME THE PHONE NUMBER FOR DOMENICO THE [email or web address] AND I CALLED HIM AND LEFT HIM A MESSAGE RE WHEN THIS WILL BE DONE.
[2020-07-15] MEDS ORDERED: INSULIN GLULISINE XX PRN (12:30)
[2020-07-15] MEDS ORDERED: INSULIN PUMP XX PRN (12:30)
--- NOTE | 2020-07-15 12:30 | NUR ---
PATIENT CALLED AND STATED THAT HER INSULIN PUMP IS EMPTY WANTS HER OWN INSULIN THAT WAS TAKEN FROM HER AND STORED IN THE PHARMACY SO THAT SHE CAN REFILL THE PUMP SO I WENT TO THE PHARMACY AND RETRIEVED HER INSULIN AND THE PHARMACIST OBTAINED AN ORDER FROM DR FARRELL TO COVER THE USE OF INSULIN AND TO ALSO COVER WHEN SHE GIVES HERSELF COVERAGE AND SHE IS ALSO WEARING THE FREE STYLE SCANNING DEVICE AND HER BLOOD SUGAR IS 192 SO SHE STATED THAT SHE GAVE HERSELF .5 UNIT COVERAGE SINCE SHE WILL BE EATING LUNCH NOW
--- NOTE | 2020-07-15 12:40 | NUR ---
PATIENT STATED THAT SHE HAS TYPE 1 DIABETES AND HAS BEEN USING INSULIN FOR DECADES STATED THAT HER BASE RATE IS .85 UNIT PER HOUR THEN SHE WILL USUALLY NOT USE EXTRA INSULIN IF HER BLOOD SUGAR IS UP TO 200 AND SHE WILL NOT BE EATING BUT IF ITS ABOVE 140 AND SHE WILL EAT THEN SHE WILL TAKE .5 UNIT OF INSULIN WHEN I ASKED HER FOR MORE INFO SHE STATED THAT USUALLY THE PUMP INSTRUCTS HER TO HOW MUCH AND WHEN BASED ON THE FREE STYLE RESULTS.
--- NOTE | 2020-07-15 14:06 | NUR ---
PHYSICAL THERAPIST HERE TO SEE PATIENT SHE WAS MEDICATED AT 1340 FOR PAIN SHE STATED WANTED A BEDPAN TO MOVE HER BOWEL THE THERAPIST OFFERED TO GET HER UP AND TAKE HER TO THE BATHROOM BUT SHE REFUSED AND STATED WILL NOT GET UP PREFERS A BEDPAN INSTEAD.BEDPAN GIVEN PATIENT HAD A BOWEL MOVEMENT DEPENDENT FOR CLEAN UP AND SHE CONTINUES TO REFUSE TO EVEN SIT AT THE EDGE OF THE BED WITH THE THERAPIST STATED THAT SOMETHING IS WRONG WITH HER THIGHS WANTS TO SEE A SPECIALIST FIRST TO EVALUATE HER AND DETERMINE WHATS WRONG WITH HER THIGH WILL NOTIFY DR FARRELL
--- NOTE | 2020-07-15 14:49 | NUR ---
DR FARRELL NOTIFIED RE PATIENTS REFUSAL TO DO THERAPY AND GET OUT OF BED UNTIL SHE SEES A SPECIALIST WITH NO NEW ORDERS AT THIS TIME.
--- NOTE | 2020-07-15 15:03 | NUR ---
CALL RECEIVED FROM DR FARRELL STATED WILL NOTIFY DR FARLEY OF THE PATIENTS COMPLAINTS.
[2020-07-15 16:00] VITALS: BP 115/42
[2020-07-15] MEDS: BLOOD SUGAR DIAGNOSTIC 1 EACH STRIP VI SCH ×2 (16:30→20:54)
--- NOTE | 2020-07-15 17:39 | NUR ---
PATIENT HAS AN ORDER FOR BLOOD SUGAR CHECKS BEFORE MEALS AND AT BEDTIME AND IS DUE NOW BUT PATIENT REFUSED STATED THAT SHE HAS THE FREE STYLE DEVICE AND DID NOT WANT HER FINGERS PRICKED SO SHE CHECKED HER BLOOD SUGAR AND ITS 186 AND SHE GAVE HERSELF 0.5 UNIT OF HER APIDRA INSULIN GLULISINE FROM HER PUMP THAT SHE IS WEARING NO S/S OF HYPO/HYPERGLYCEMIC REACTIONS AT THIS TIME WILL CONTINUE TO OBSERVE AND PROVIDE WITH SAFE AND THERAPEUTIC ENVIRONMENT AT ALL TIMES.
--- NOTE | 2020-07-15 18:02 | NUR ---
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
--- NOTE | 2020-07-15 18:29 | NUR ---
MEDICATED WITH NORCO FOR PAIN ORDERED AND NOTED SOME SEROUS FLUID FROM HER INCISION SO DRESSING CHANGED INCISION SITE IS CLEAR WITH NO REDNESS AND JOSEPH INTACT AT THIS TIME.
--- NOTE | 2020-07-15 19:30 | NUR ---
Received patient lying in bed. AAOx4. In no acute distress. Denies any SOB. Some pain on left hip area with mobility/activity but tammi. at this time. Left hip incision site with dressing clean, dry and intact. NSR on tele at 72/min. IV site on left AC intact and patent. Needs attended to and met. Safety measure initiated and call de leon within reached. Addendum: 07/16/20 at 0509 by MUKESH VERMA RN Patient not on tele.
[2020-07-15 20:03] VITALS: BP 135/53
[2020-07-15] MEDS ORDERED: NALOXONE HCL 0.4 MG/ML AMPUL IV PRN (22:00)
[2020-07-15] MEDS: OXYCODONE HCL 10 MG TAB.SR.12H PO SCH (22:21)
[2020-07-16 02:58] LABS: *BILIRUBIN,URIN NEGATIVE (NEGATIVE); *BLOOD, URINE NEGATIVE (NEGATIVE); *CLARITY,URINE CLEAR (CLEAR); *COLOR,URINE YELLOW (YELLOW); *KETONES,URINE NEGATIVE (NEGATIVE); *UROBILINOGEN,URINE 0.2 E.U./dl (NORMAL); LEUKOCYTE ESTERASE ,URINE NEGATIVE (NEGATIVE); NITRITE, URINE NEGATIVE (NEGATIVE); UGLUCOSE TRACE (NEGATIVE)
[2020-07-16 03:49] LABS: BACTERIA,URINE NONE SEEN /HPF (NONE SEEN); RBC,URINE 0-3 /HPF (0-3); SQUAMOUS EPITHELIAL CELL,UR MODERATE /HPF (NONE SEEN); WBC,URINE 0-3 /HPF (0-3)
[2020-07-16 04:00] VITALS: BP 121/52
[2020-07-16] MEDS: OXYCODONE HCL 10 MG TAB.SR.12H PO SCH ×3 (05:00→21:11)
[2020-07-16] MEDS: GABAPENTIN 300 MG CAPSULE PO SCH ×3 (05:00→21:10)
--- NOTE | 2020-07-16 06:08 | NUR ---
AAOx4. In no acute distress. Denies any SOB. On RTC Oxycontin 10mg for left hip/leg pain and effective. Left hip incision site with dressing remains clean, dry and intact. Needs attended to and met. Safety measure maintained and call de leon within reached.
[2020-07-16] MEDS: PANTOPRAZOLE SODIUM 40 MG TABLET.DR PO SCH (06:12)
[2020-07-16] MEDS: BLOOD SUGAR DIAGNOSTIC 1 EACH STRIP VI SCH ×4 (07:30→21:00)
--- NOTE | 2020-07-16 07:45 | NUR ---
PATIENT TOOK HER OWN BLOOD SUGAR WITH THE FREESTYLE MACHINE AND RESULT WAS 50. PT IS ASYMPTOMATIC AT THIS TIME. GAVE PT 60ML OF ORANGE JUICE. WILL CONTINUE TO OBSERVE AND RE-ASSESS BLOOD SUGAR LEVELS.
--- NOTE | 2020-07-16 08:00 | NUR ---
PT RE-CHECKED HER BLOOD SUGAR USING HER FREESTYLE MACHINE AND THE RESULT IS 70. NO S/S OF HYPO/HYPERGLYCEMIC REACTIONS AT THIS TIME. WILL CONTINUE TO OBSERVE.
[2020-07-16 08:11] VITALS: BP 130/48
[2020-07-16] MEDS: CULTURELLE CAPSULE PO SCH ×2 (08:49→20:43)
[2020-07-16] MEDS: MULTIVITAMINS,THERAPEUTIC TABLET PO SCH (08:49)
[2020-07-16] MEDS: LIDOCAINE 5% PATCH TD SCH (08:50)
[2020-07-16] MEDS: BISACODYL 10 MG SUPP.RECT RC SCH (08:50)
[2020-07-16] MEDS: FLUTICASONE/VILANTEROL 1 EACH BLST.W.DEV INH SCH (08:52)
--- NOTE | 2020-07-16 09:56 | NUR ---
UP ON THE CHAIR AND TAKEN TO THE GYM FOR OCCUPATIONAL THERAPEUTIC EXERCISES ORDERED
--- NOTE | 2020-07-16 11:00 | NUR ---
PHYSICAL THERAPIST HERE AND ATTEMPTED TO GET PATIENT UP FOR THERAPY AND PATIENT REFUSED AND THE THERAPIST OFFERED TO DO BED EXERCISES AND SHE REFUSED THAT ALSO WILL CONTINUE TO ENCOURAGE AND EDUCATE HER ON THE IMPORTANCE OF BEING COMPLIANT WITH THE PHYSICAL THERAPY ORDERED BY HER PROVIDERS EXPLAINED UNDERSTANDING BUT WILL CONTINUE TO OBSERVE.
[2020-07-16] MEDS: HYDROCODONE/APAP 10-325 MG TABLET PO PRN (11:31)
[2020-07-16] MEDS: ONDANSETRON HCL 4 MG TABLET PO PRN (11:45)
--- NOTE | 2020-07-16 12:38 | NUR ---
PATIENT CONTINUES TO REFUSE BLOOD SUGAR CHECKS PREFERS TO USE HER FREE STYLE MACHINE AND I OBSERVED HER DOING IT AND THE RESULT IS 165 AT THIS TIME STATED WILL NOT TAKE ANY INSULIN BUT STILL GETTING HER CONTINOUS BASE RATE OF 0.85 UNITS PER HOUR WITH NO S/S OF HYPO/HYPERGLYCEMIC REACTIONS AT THIS TIME
--- NOTE | 2020-07-16 14:37 | NUR ---
INDIVIDUALIZED PLAN OF CARE
[2020-07-16 15:57] VITALS: BP 117/46
--- NOTE | 2020-07-16 16:32 | NUR ---
PATIENT IS STILL REFUSING PHYSICAL THERAPY ATTEMPTS MADE SEVRAL TIMES BY THE THERAPIST BUT SHE IS STILL NOT AGREEING TO PROCEED WITH THERAPY AT THIS TIME
--- NOTE | 2020-07-16 17:30 | NUR ---
PT REFUSED FINGER STICK FOR BLOOD SUGAR LEVELS. SHE USED HER FREESTYLE MACHINE AND THE RESULT WAS 80. BASAL RATE FROM INSULIN PUMP CONTINUES AT 0.85 UNIT/HR AND NO SUPPLEMENTAL INSULIN ADMINISTERED AT THIS TIME. NO S/S OF HYPO/HYPERGLYCEMIA. DINNER SERVED. PATIENT ENCOURAGED TO EAT. NO S/S OF ADVERSE OR ALLERGIC REACTIONS AT THIS TIME. WILL CONTINUE TO OBSERVE.
--- NOTE | 2020-07-16 18:43 | NUR ---
TOLERATED DINNER WELL EDUCATED PATIENT AGAIN ON THE NEED FOR HER TO COOPERATE WITH PHYSICAL THERAPY AND STAY COMPLIANT IN THE PROGRAM PATIENT CONTINUES TO SAY THAT THE THERAPY IS NOT RIGHT FOR HER STATED WILL BRAINSTORM WITH THE DOCTOR WILL CONTINUE TO ENCOURAGE PATIENT ON THE NEED TO BE COMPLIANT.
--- NOTE | 2020-07-16 20:00 | NUR ---
patient had a large bm using the commode according to the CAMPER ASSEMBLER .she's back to bed now. call light placed with in reach . no complains made .
[2020-07-16 20:50] VITALS: BP 122/82
--- NOTE | 2020-07-16 22:00 | NUR ---
PATIENT REFUSED FINGERSTICK , SHE HAS HER OWN SUGAR CHECKED USING THE FREE STYLE HER RESULT IS 101.
--- NOTE | 2020-07-17 04:49 | NUR ---
patient called she said her blood sugar is low 54 using her own machine at bedside . fingerstick done blood sugar is 66 ,given orange juice and chocolate pudding . hob up aspiration precaution observed patient able to feed self . will check blood sugar in 30 minutes.
[2020-07-17 04:53] VITALS: BP 115/48
--- NOTE | 2020-07-17 05:28 | NUR ---
checked blood sugar 123 .no action needed . patient feels much better .
[2020-07-17] MEDS: GABAPENTIN 300 MG CAPSULE PO SCH ×3 (05:32→22:48)
[2020-07-17] MEDS: OXYCODONE HCL 10 MG TAB.SR.12H PO SCH ×3 (05:32→22:48)
--- NOTE | 2020-07-17 06:15 | NUR ---
patient requested for the bedpan ,voided ,perineal care done and changed soiled linens and gown .
[2020-07-17] MEDS: PANTOPRAZOLE SODIUM 40 MG TABLET.DR PO SCH (06:21)
[2020-07-17] MEDS: BLOOD SUGAR DIAGNOSTIC 1 EACH STRIP VI SCH ×4 (06:43→19:59)
--- NOTE | 2020-07-17 06:46 | NUR ---
refused fingerstick and she said she feels much better now patient did her own sugar check free style ,f/s 250
--- NOTE | 2020-07-17 07:30 | NUR ---
RECEIVED CHANGE OF SHIFT REPORT ON PT. PT IN BED RESTING, AWAKE ALERT AND ORIENTED X4. LEFT HIP HAS DRESSING IN TACT, PT ON ROOM AIR. PT URINATES VIA BEDPAN, NO IV ACCESS. BED IN LOW AND LOCKED POSITION, CALL LIGHT WITHIN REACH, SAFETY AND FALL PRECAUTIONS IN PLACE, BED ALARM ON. WILL CONTINUE TO MONITOR.
[2020-07-17 08:00] VITALS: BP 117/66
[2020-07-17] MEDS: MULTIVITAMINS,THERAPEUTIC TABLET PO SCH (08:34)
[2020-07-17] MEDS: ONDANSETRON HCL 4 MG TABLET PO PRN (08:34)
[2020-07-17] MEDS: LIDOCAINE 5% PATCH TD SCH (08:35)
[2020-07-17] MEDS: CULTURELLE CAPSULE PO SCH ×2 (08:35→19:46)
[2020-07-17] MEDS: BISACODYL 10 MG SUPP.RECT RC SCH (08:35)
[2020-07-17] MEDS: FLUTICASONE/VILANTEROL 1 EACH BLST.W.DEV INH SCH (08:38)
[2020-07-17] MEDS: HYDROCODONE/APAP 10-325 MG TABLET PO PRN ×2 (11:16→19:46)
--- NOTE | 2020-07-17 12:30 | NUR ---
PT SELF CHECKED HER BLOOD GLUCOSE USING HER OWN MACHINE AT BEDSIDE, READING WAS 266. PT ALLOWED ME TO CHECK HER SUGAR USING THE HOSPITAL ACCUCHECK MACHINE, READING WAS 216. PT HAS INSULIN PUMP AND ADJUSTS THE DOSAGE NEEDED, NO ADDITIONAL INSULIN GIVEN. CALLED MD TO MAKE HIM AWARE.
--- NOTE | 2020-07-17 15:00 | NUR ---
INTERDISCIPLINARY TEAM CONFERENCE
[2020-07-17 16:00] VITALS: BP 112/41
--- NOTE | 2020-07-17 16:30 | NUR ---
pt refused fingerstick, pt mentioned she would rather use her freestyle blood glucose power checker at bedside. pt freestyle device read 62, OJ was given to pt. pt mentioned she suspended her insulin pump. Will monitor and recheck sugar levels.
--- NOTE | 2020-07-17 17:00 | NUR ---
asked pt to recheck blood glucose via free style monitor and it read 72. pt reported feeling fine without any problems, no signs of distress noted. will continue to monitor
[2020-07-17] MEDS: GLUCERNA SHAKE VANILLA 237 ML CAN PO SCH (17:04)
--- NOTE | 2020-07-17 18:33 | NUR ---
PT IN BED RESTING, LEFT LEG ON PILLOW FOR COMFORT, DRESSING IN TACT, DRY, NO DRAINAGE. PT ON ROOM AIR, NO SIGNS OF DISTRESS NOTED, NO IV ACCESS, MEDICATIONS GIVEN ORDERED, NO REPORTS OF PAIN NOTED. ALL NEEDS ADDRESSED DURING THIS SHIFT. BED IN LOW AND LOCKED POSITION, CALL LIGHT WITHIN REACH, SAFETY AND FALL PRECAUTIONS IN PLACE, WILL ENDORSE TO ONCOMING NURSE.
[2020-07-17 20:16] VITALS: BP 116/43
--- NOTE | 2020-07-17 21:00 | NUR ---
Pt lying in bed AAOx4. No s/s of acute distress noted at this time. Pt on RA denies SOB. C/o left leg pain 12/24, administered NORCO PRN. All due medication administered as ordered. Accucheck 136, has own insulin pump, no additional insulin given. Left hip dressing intact. pt urinated via bedpan. Kept clean dry and comfortable. Safety measures and fall precautions in place. Bed locked, in low position, and alarm on. Will continue with plan of care.
[2020-07-18 04:12] VITALS: BP 108/37
[2020-07-18] MEDS: GABAPENTIN 300 MG CAPSULE PO SCH ×3 (06:07→21:18)
[2020-07-18] MEDS: PANTOPRAZOLE SODIUM 40 MG TABLET.DR PO SCH (06:07)
[2020-07-18] MEDS: OXYCODONE HCL 10 MG TAB.SR.12H PO SCH ×3 (06:08→21:18)
[2020-07-18] MEDS: BLOOD SUGAR DIAGNOSTIC 1 EACH STRIP VI SCH ×4 (06:33→20:16)
[2020-07-18] MEDS: ONDANSETRON HCL 4 MG TABLET PO PRN (06:50)
--- NOTE | 2020-07-18 07:30 | NUR ---
PT RESTING IN BED, AWAKE ALERT AND ORIENTED X4, PT LEFT HIP DRESSING IN TACT, DRY AND CLEAN, ON ROOM AIR NO SIGNS OF DISTRESS NOTED, NO REPORTS OF PAIN AT THIS TIME. PT USES BEDPAN. PT HAS OWN INSULIN PUMP AND BLOOD GLUCOSE MONITOR. BED IN LOW AND LOCKED POSITION, BED ALARM ON, SAFETY AND FALL PRECAUTIONS IN PLACE. WILL CONTINUE WITH PLAN OF CARE.
[2020-07-18 08:00] VITALS: BP 115/54
[2020-07-18] MEDS: GLUCERNA SHAKE VANILLA 237 ML CAN PO SCH ×2 (08:04→16:46)
[2020-07-18] MEDS: CULTURELLE CAPSULE PO SCH ×2 (08:52→20:11)
[2020-07-18] MEDS: LIDOCAINE 5% PATCH TD SCH (08:52)
[2020-07-18] MEDS: MULTIVITAMINS,THERAPEUTIC TABLET PO SCH (08:52)
[2020-07-18] MEDS: FLUTICASONE/VILANTEROL 1 EACH BLST.W.DEV INH SCH (08:52)
[2020-07-18] MEDS: BISACODYL 10 MG SUPP.RECT RC SCH (09:00)
--- NOTE | 2020-07-18 12:00 | NUR ---
pt changed her own insulin pump as it was beeping to be changed. Accucheck was 176, no coverage given s pt will use her own pump.
[2020-07-18] MEDS: HYDROCODONE/APAP 10-325 MG TABLET PO PRN (12:46)
--- NOTE | 2020-07-18 13:10 | NUR ---
PT WAS ABLE TO TRANSFER WITH ASSIST TO BEDSIDE COMMODE. PHYSICAL THERAPY WAS AT BEDSIDE TO SHOW PT HOW TO GET ON AND OFF THE COMMODE EASILY.
[2020-07-18 16:00] VITALS: BP 119/48
--- NOTE | 2020-07-18 18:11 | NUR ---
pt in bed resting, awake alert and oriented x4. Dressing is clean and intact. pr on room air, no signs of distress noted, no reports of pain at this time. pt able to transfer to bedside commode with assist, last BM was today 07/17/20. pt on diabetic diet, able to swallow whole pills. pt has her own insulin pump, and monitors her own blood glucose. all medications given as prescribed, all needs tended too this shift, bed in low and locked position, call light within reach, safety and fall precautions in place, will endorse to oncoming nurse.
--- NOTE | 2020-07-18 19:30 | NUR ---
Received patient lying in bed. AAOx4. In no acute distress. Denies any pain or SOB. Some pain on left hip area with mobility/activity but tammi. at this time. Left hip incision site with dressing clean, dry and intact. IV site on left AC intact and patent. Needs attended to and met. Safety measure initiated and call de leon within reached.
[2020-07-18 20:00] VITALS: BP 125/54
[2020-07-19] MEDS: HYDROCODONE/APAP 10-325 MG TABLET PO PRN ×2 (03:37→11:07)
[2020-07-19] MEDS: ONDANSETRON HCL 4 MG TABLET PO PRN ×2 (03:38→07:55)
[2020-07-19 04:00] VITALS: BP 109/42
[2020-07-19] MEDS: GABAPENTIN 300 MG CAPSULE PO SCH ×3 (06:29→21:14)
[2020-07-19] MEDS: PANTOPRAZOLE SODIUM 40 MG TABLET.DR PO SCH (06:29)
[2020-07-19] MEDS: OXYCODONE HCL 10 MG TAB.SR.12H PO SCH ×3 (06:29→21:14)
[2020-07-19] MEDS: BLOOD SUGAR DIAGNOSTIC 1 EACH STRIP VI SCH ×4 (06:35→21:24)
--- NOTE | 2020-07-19 06:47 | NUR ---
AAOx4. In no acute distress. Complain of pain on left hip and leg area but stated tolerable at this time. Repositioned for comfort. [place] given for breakthrough pain and effective. Zofran givenx1 for complain of nausea and effective. Left hip incision site with dressing clean, dry and intact. IV site on left AC intact and patent. Needs attended to and met. Safety measure maintained and call de leon within reached.
[2020-07-19] MEDS: CULTURELLE CAPSULE PO SCH ×2 (07:55→21:14)
[2020-07-19] MEDS: MULTIVITAMINS,THERAPEUTIC TABLET PO SCH (07:57)
[2020-07-19] MEDS: LIDOCAINE 5% PATCH TD SCH (07:58)
[2020-07-19] MEDS: BISACODYL 10 MG SUPP.RECT RC SCH (07:58)
[2020-07-19 08:00] VITALS: BP 124/51
[2020-07-19] MEDS: FLUTICASONE/VILANTEROL 1 EACH BLST.W.DEV INH SCH (08:09)
[2020-07-19] MEDS: GLUCERNA SHAKE VANILLA 237 ML CAN PO SCH ×2 (08:09→17:33)
--- NOTE | 2020-07-19 11:00 | NUR ---
HAS INSULIN PUMP. CHECKED HER BS WAS 221. SHE COVERED HERSELF ACCORDING TO HER SLIDING SCALE.
[2020-07-19 12:00] VITALS: BP 124/51
--- NOTE | 2020-07-19 15:18 | NUR ---
SHE MONITORS HER BLOOD SUGAR. LATEST RESULT 206 SHE COVERED HERSELF NEED WITH THEINSULIN PUMP. SHE SAYS HER GOAL IS TO MAINTAIN THE BLOOD SUGAR BETWEEN 80-150
[2020-07-19 15:48] VITALS: BP 118/54
[2020-07-19 20:12] VITALS: BP 106/46
--- NOTE | 2020-07-19 21:30 | NUR ---
Pt lying in bed AAOx4. No s/s of acute distress noted at this time. Pt on RA denies SOB. C/o left leg pain 01/24, scheduled OxyContin. All due medication administered as ordered. Accucheck 122, has own insulin pump, no additional insulin given. Left hip dressing intact. pt urinated via bedside commode. Kept clean dry and comfortable. Safety measures and fall precautions in place. Bed locked, in low position, and alarm on. Will continue with plan of care.
[2020-07-20 05:48] VITALS: BP 118/52
[2020-07-20] MEDS: PANTOPRAZOLE SODIUM 40 MG TABLET.DR PO SCH (06:13)
[2020-07-20] MEDS: OXYCODONE HCL 10 MG TAB.SR.12H PO SCH ×3 (06:13→21:01)
[2020-07-20] MEDS: BLOOD SUGAR DIAGNOSTIC 1 EACH STRIP VI SCH ×4 (06:25→21:14)
[2020-07-20 08:00] VITALS: BP 111/45
[2020-07-20] MEDS: HYDROCODONE/APAP 10-325 MG TABLET PO PRN (10:34)
[2020-07-20] MEDS: BISACODYL 10 MG SUPP.RECT RC SCH (10:34)
[2020-07-20] MEDS: CULTURELLE CAPSULE PO SCH ×2 (10:34→21:00)
[2020-07-20] MEDS: GABAPENTIN 300 MG CAPSULE PO SCH ×4 (10:34→21:00)
[2020-07-20] MEDS: MULTIVITAMINS,THERAPEUTIC TABLET PO SCH (10:36)
[2020-07-20] MEDS: FLUTICASONE/VILANTEROL 1 EACH BLST.W.DEV INH SCH (11:02)
[2020-07-20] MEDS: GLUCERNA SHAKE VANILLA 237 ML CAN PO SCH ×2 (11:02→16:33)
[2020-07-20] MEDS: LIDOCAINE 5% PATCH TD SCH (11:03)
[2020-07-20 13:54] VITALS: BP 110/52
[2020-07-20 17:14] VITALS: BP 116/48
[2020-07-20 20:12] VITALS: BP 135/52
[2020-07-20 20:34] LABS: *BILIRUBIN,URIN NEGATIVE (NEGATIVE); *BLOOD, URINE NEGATIVE (NEGATIVE); *CLARITY,URINE CLEAR (CLEAR); *COLOR,URINE YELLOW (YELLOW); *KETONES,URINE NEGATIVE (NEGATIVE); *UROBILINOGEN,URINE 0.2 E.U./dl (NORMAL); LEUKOCYTE ESTERASE ,URINE NEGATIVE (NEGATIVE); NITRITE, URINE NEGATIVE (NEGATIVE); UGLUCOSE NEGATIVE (NEGATIVE)
--- NOTE | 2020-07-20 20:45 | NUR ---
No s/s of acute distress noted at this time. Pt on RA denies SOB. C/o left leg pain 12/24, scheduled OxyContin administered. All due medication administered as ordered. Accucheck 92, has own insulin pump,no coverage administered. Left hip dressing intact. Assisted pt to bedside commode. C/o of burning upon urination. Notified pediatric orthodontist for UA collection. Collected and sent to lab. Kept clean dry and comfortable. Safety measures and fall precautions in place. Bed locked, in low position, and alarm on. Will continue with plan of care.
[2020-07-21 05:33] VITALS: BP 102/42
[2020-07-21] MEDS: PANTOPRAZOLE SODIUM 40 MG TABLET.DR PO SCH (06:32)
[2020-07-21] MEDS: OXYCODONE HCL 10 MG TAB.SR.12H PO SCH ×3 (06:32→21:57)
[2020-07-21] MEDS: BLOOD SUGAR DIAGNOSTIC 1 EACH STRIP VI SCH ×4 (06:42→22:17)
--- NOTE | 2020-07-21 06:42 | NUR ---
pt slept well throughout the night. No acute distress noted. No s/s of hypo/hyperglycemia. Scheduled oxycontin administered for pain 12/24. Will continue plan care and endorse to oncoming shift.
[2020-07-21 07:42] VITALS: BP 104/44
[2020-07-21] MEDS: GLUCERNA SHAKE VANILLA 237 ML CAN PO SCH ×2 (08:00→17:50)
[2020-07-21] MEDS: LIDOCAINE 5% PATCH TD SCH (08:56)
[2020-07-21] MEDS: CULTURELLE CAPSULE PO SCH ×2 (08:56→21:57)
[2020-07-21] MEDS: GABAPENTIN 300 MG CAPSULE PO SCH ×4 (08:56→21:56)
[2020-07-21] MEDS: MULTIVITAMINS,THERAPEUTIC TABLET PO SCH (08:56)
[2020-07-21] MEDS: HYDROCODONE/APAP 10-325 MG TABLET PO PRN ×2 (08:56→09:04)
[2020-07-21] MEDS: FLUTICASONE/VILANTEROL 1 EACH BLST.W.DEV INH SCH (08:57)
[2020-07-21] MEDS: BISACODYL 10 MG SUPP.RECT RC SCH (08:57)
[2020-07-21 11:58] VITALS: BP 120/52
[2020-07-21] MEDS: ONDANSETRON HCL 4 MG TABLET PO PRN (15:16)
[2020-07-21] MEDS: LIDOCAINE 5% PATCH TD PRN (15:17)
[2020-07-21 17:20] VITALS: BP 126/56
[2020-07-21 20:20] VITALS: BP 94/37
[2020-07-22 05:24] VITALS: BP 108/47
[2020-07-22] MEDS: PANTOPRAZOLE SODIUM 40 MG TABLET.DR PO SCH (06:17)
[2020-07-22] MEDS: OXYCODONE HCL 10 MG TAB.SR.12H PO SCH ×3 (06:17→21:01)
[2020-07-22] MEDS: BLOOD SUGAR DIAGNOSTIC 1 EACH STRIP VI SCH ×4 (06:43→20:59)
--- NOTE | 2020-07-22 07:20 | NUR ---
Pt in bed resting, on room air saturating well. A&Ox4. no S/S of acute distress. OxyContin given before shift and working well. last BS was 63 pt given orange juice. Bed in lowest position, safety measures in place. Call light in reach, will continue to monitor
[2020-07-22 07:30] VITALS: BP 101/41
[2020-07-22] MEDS: GLUCERNA SHAKE VANILLA 237 ML CAN PO SCH ×2 (08:02→16:49)
[2020-07-22] MEDS: BISACODYL 10 MG SUPP.RECT RC SCH (08:22)
[2020-07-22] MEDS: MULTIVITAMINS,THERAPEUTIC TABLET PO SCH (08:22)
[2020-07-22] MEDS: LIDOCAINE 5% PATCH TD SCH (08:22)
[2020-07-22] MEDS: GABAPENTIN 300 MG CAPSULE PO SCH ×4 (08:22→20:56)
[2020-07-22] MEDS: CULTURELLE CAPSULE PO SCH ×2 (08:23→20:56)
[2020-07-22] MEDS: FLUTICASONE/VILANTEROL 1 EACH BLST.W.DEV INH SCH (08:24)
[2020-07-22 08:41] LABS: BASOPHILS % (AUTO) 0.6 % (0.0-2.0); EOSINOPHILS % (AUTO) 0.1 % (0.0-7.0); HEMATOCRIT 31.3 % (31.2-41.9); HEMOGLOBIN 10.4 g/dL (10.9-14.3); LYMPHOCYTES % (AUTO) 17.4 % (20.5-51.5); MEAN CORPUSCULAR HEMOGLOBIN 32.7 uug (24.7-32.8); MEAN CORPUSCULAR HGB CONC 33 g/dL (32.3-35.6); MONOCYTES # (AUTO) 0.5 K/uL (2.0-10.0); MONOCYTES % (AUTO) 8.3 % (0.0-11.0); NEUTROPHILS # (AUTO) 4.4 K/uL (1.8-8.9); NEUTROPHILS % (AUTO) 73.6 % (38.5-71.5); PLATELET COUNT (AUTO) 430 K/uL (179-408); RED BLOOD CELL COUNT(AUTO) 3.16 MIL/uL (3.63-4.92)
[2020-07-22 08:47] LABS: CREATININE 0.7 mg/dL (0.6-1.3); POTASSIUM 4.4 mmol/L (3.5-5.1)
[2020-07-22] MEDS: ONDANSETRON HCL 4 MG TABLET PO PRN (10:48)
[2020-07-22] MEDS: HYDROCODONE/APAP 10-325 MG TABLET PO PRN (10:49)
[2020-07-22 15:46] VITALS: BP 118/47
[2020-07-22] MEDS: LIDOCAINE 5% PATCH TD PRN (18:04)
--- NOTE | 2020-07-22 18:41 | NUR ---
EOSR pt in bed resting. On room air and saturating at 98%. A&Ox4 able to make needs known. No S/S of acute distress noted. Last acucheck was 190 pt gave herself insulin. All meds given as ordered, all needs are met. Bed in lowest position, call light in reach, safety measures in place. Will endorse to oncoming nurse
[2020-07-22 20:12] VITALS: BP 127/50
--- NOTE | 2020-07-22 21:53 | NUR ---
AAOx4 atient watching TV upon initial rounds.Needs attended. Admitted for a left hip fracture. Patient S/P left hip IM nailing on 07/06. Dressing intact. No acute distress noted. OOB to bedside commode with assist. Voiding freely. Patient has own insulin pump where she do her own accucheck and give them coverage if needed. Accucheck 166. Kept comfortable. Will monitor patient.
[2020-07-23 04:12] VITALS: BP 139/57
[2020-07-23] MEDS: OXYCODONE HCL 10 MG TAB.SR.12H PO SCH ×3 (05:02→21:18)
--- NOTE | 2020-07-23 05:20 | NUR ---
pt slept well throughout the night. no acute distress noted. C/o pain, per pt request administered scheduled OxyContin. Needs attended too. Kept comfortable. No s/s of hyper/hypoglycemia. Will continue to monitor and endorse report to oncoming nurse.
[2020-07-23] MEDS: PANTOPRAZOLE SODIUM 40 MG TABLET.DR PO SCH (06:18)
[2020-07-23] MEDS: BLOOD SUGAR DIAGNOSTIC 1 EACH STRIP VI SCH ×4 (06:19→20:42)
--- NOTE | 2020-07-23 07:30 | NUR ---
Received patient in bed. Awake, alert and oriented times 4. No sign of distress noted at this time. Patient complains of pain, will review eMAR. safety precautions are in place. Will continue to monitor.
[2020-07-23 07:32] VITALS: BP 145/49
[2020-07-23] MEDS: GLUCERNA SHAKE VANILLA 237 ML CAN PO SCH ×2 (08:12→17:27)
[2020-07-23] MEDS: GABAPENTIN 300 MG CAPSULE PO SCH ×4 (08:13→20:42)
[2020-07-23] MEDS: CULTURELLE CAPSULE PO SCH ×2 (08:13→20:41)
[2020-07-23] MEDS: BISACODYL 10 MG SUPP.RECT RC SCH (08:13)
[2020-07-23] MEDS: MULTIVITAMINS,THERAPEUTIC TABLET PO SCH (08:13)
[2020-07-23] MEDS: FLUTICASONE/VILANTEROL 1 EACH BLST.W.DEV INH SCH (08:13)
[2020-07-23] MEDS: LIDOCAINE 5% PATCH TD SCH (08:15)
[2020-07-23] MEDS: HYDROCODONE/APAP 10-325 MG TABLET PO PRN ×2 (08:18→17:26)
[2020-07-23 16:00] VITALS: BP 127/40
--- NOTE | 2020-07-23 17:00 | NUR ---
Patient reports that she asked Dr Tovar and Dr Chase about her desire to have a cortisone shot in her knee. Will continue to monitor.
--- NOTE | 2020-07-23 18:40 | NUR ---
Patient is left resting in bed. No sign of distress noted. Gave all medications as ordered. Safety precautions are in place. Will endorse to oncoming nurse.
[2020-07-23 20:12] VITALS: BP 118/47
--- NOTE | 2020-07-23 21:48 | NUR ---
cute distress noted. Pain meds given as scheduled. Patient do her own accucheck. Has her own insulin pump. Accucheck 198, patient administer 0.6 of insulin.
--- NOTE | 2020-07-23 21:54 | NUR ---
AAO x4 Needs attended. VSS. S/P left hip IM nailing dressing intact. Patient diabetic. Patient has insulin pump. Accucheck 198. Will monitor patient. Pain meds given as scheduled.
[2020-07-24] MEDS: ONDANSETRON HCL 4 MG TABLET PO PRN ×2 (01:00→17:27)
[2020-07-24] MEDS: PANTOPRAZOLE SODIUM 40 MG TABLET.DR PO SCH (06:09)
[2020-07-24] MEDS: OXYCODONE HCL 10 MG TAB.SR.12H PO SCH ×3 (06:09→21:19)
[2020-07-24] MEDS: BLOOD SUGAR DIAGNOSTIC 1 EACH STRIP VI SCH ×4 (06:34→21:40)
--- NOTE | 2020-07-24 07:00 | NUR ---
End of shift notes: AAOx4 Slept well throughout the night. Pain meds given as scheduled. Needs attended. Continent of bowel and bladder. VSS. Accucheck this am 148.
[2020-07-24 07:43] VITALS: BP 130/44
[2020-07-24] MEDS: MULTIVITAMINS,THERAPEUTIC TABLET PO SCH (08:54)
[2020-07-24] MEDS: CULTURELLE CAPSULE PO SCH ×2 (08:54→21:19)
[2020-07-24] MEDS: GLUCERNA SHAKE VANILLA 237 ML CAN PO SCH ×2 (08:54→17:28)
[2020-07-24] MEDS: GABAPENTIN 300 MG CAPSULE PO SCH ×4 (08:54→21:19)
[2020-07-24] MEDS: LIDOCAINE 5% PATCH TD SCH (08:55)
[2020-07-24] MEDS: FLUTICASONE/VILANTEROL 1 EACH BLST.W.DEV INH SCH (09:23)
[2020-07-24] MEDS: BISACODYL 10 MG SUPP.RECT RC SCH (09:23)
[2020-07-24] MEDS: HYDROCODONE/APAP 10-325 MG TABLET PO PRN (10:48)
--- NOTE | 2020-07-24 11:15 | NUR ---
PT NOTE pt refused tx at this time d/t report of "knee infected" RN made aware of refusal and pt requesting to see MD prior to getting up to participate with PT tx.
--- NOTE | 2020-07-24 12:41 | NUR ---
INTERDISCIPLINARY TEAM CONFERENCE
[2020-07-24] MEDS ORDERED: TRIAMCINOLONE ACETONIDE 40 MG/1 ML VIAL IM STA (13:28)
[2020-07-24] MEDS ORDERED: LIDOCAINE HCL 1% 20 ML VIAL IJ ONE (13:30)
[2020-07-24 15:52] VITALS: BP 104/58
--- NOTE | 2020-07-24 18:27 | NUR ---
AAO x4 Needs attended. VSS. S/P left hip IM nailing dressing intact. Surgery staple wires remove, wound intact, administered with sterile stripe. Patient diabetic. Patient has insulin pump. Accucheck 135. took her last supply of vial from pharmacy pt aware. administered prn and routine pain meds as ordered, tolereated well. Xylocaine 1% and Kenalog-40 administered by MD on left knee. Will monitor patient.
[2020-07-24 20:12] VITALS: BP 126/50
--- NOTE | 2020-07-24 22:00 | NUR ---
Pt resting bed. No acute distress noted. C/o of pain 12/24. Scheduled OxyContin administered. VSS. Sterile stripes intact. All due medication administered and tolerated well. Patient has insulin pump. Accucheck 252, pt covered with her own insulin. Safety measures maintained. Will continue plan of acre and monitor throughout the night.
[2020-07-25 04:12] VITALS: BP 115/49
[2020-07-25] MEDS: OXYCODONE HCL 10 MG TAB.SR.12H PO SCH ×3 (06:30→22:00)
[2020-07-25] MEDS: PANTOPRAZOLE SODIUM 40 MG TABLET.DR PO SCH (06:30)
[2020-07-25] MEDS: ONDANSETRON HCL 4 MG TABLET PO PRN (06:37)
[2020-07-25] MEDS: BLOOD SUGAR DIAGNOSTIC 1 EACH STRIP VI SCH ×4 (06:49→20:42)
[2020-07-25 09:20] VITALS: BP 116/40
[2020-07-25] MEDS: LIDOCAINE 5% PATCH TD SCH (10:02)
[2020-07-25] MEDS: CULTURELLE CAPSULE PO SCH ×2 (10:02→20:26)
[2020-07-25] MEDS: MULTIVITAMINS,THERAPEUTIC TABLET PO SCH (10:02)
[2020-07-25] MEDS: GABAPENTIN 300 MG CAPSULE PO SCH ×4 (10:02→20:26)
[2020-07-25] MEDS: BISACODYL 10 MG SUPP.RECT RC SCH (10:02)
[2020-07-25] MEDS: HYDROCODONE/APAP 10-325 MG TABLET PO PRN ×2 (10:03→20:27)
[2020-07-25] MEDS: FLUTICASONE/VILANTEROL 1 EACH BLST.W.DEV INH SCH (10:39)
[2020-07-25] MEDS: GLUCERNA SHAKE VANILLA 237 ML CAN PO SCH ×2 (10:39→17:35)
[2020-07-25 16:01] VITALS: BP 114/44
[2020-07-25 20:12] VITALS: BP 117/43
--- NOTE | 2020-07-25 23:17 | NUR ---
C/o of pain 12/24., at the beginning of shift, administered PRN [place]. Scheduled OxyContin not administered, pt is not c/o of pain pain the moment. VSS. Sterile stripes intact. All due medication administered and tolerated well with apple sauce. Patient has insulin pump. no s/s of hypo/hyper glycemia. Safety measures maintained. Will continue to monitor throughout the night.
[2020-07-26] MEDS: HYDROCODONE/APAP 10-325 MG TABLET PO PRN ×2 (02:37→12:34)
[2020-07-26 04:12] VITALS: BP 112/49
[2020-07-26] MEDS: OXYCODONE HCL 10 MG TAB.SR.12H PO SCH ×3 (06:18→21:35)
[2020-07-26] MEDS: PANTOPRAZOLE SODIUM 40 MG TABLET.DR PO SCH (06:18)
[2020-07-26] MEDS: BLOOD SUGAR DIAGNOSTIC 1 EACH STRIP VI SCH ×4 (06:39→20:39)
[2020-07-26] MEDS: MULTIVITAMINS,THERAPEUTIC TABLET PO SCH (08:48)
[2020-07-26] MEDS: GABAPENTIN 300 MG CAPSULE PO SCH ×4 (08:48→20:38)
[2020-07-26] MEDS: ONDANSETRON HCL 4 MG TABLET PO PRN ×2 (08:48→15:24)
[2020-07-26] MEDS: CULTURELLE CAPSULE PO SCH ×2 (08:48→20:38)
[2020-07-26] MEDS: LIDOCAINE 5% PATCH TD SCH (08:49)
[2020-07-26] MEDS: GLUCERNA SHAKE VANILLA 237 ML CAN PO SCH ×2 (08:49→18:16)
[2020-07-26] MEDS: BISACODYL 10 MG SUPP.RECT RC SCH (08:49)
[2020-07-26] MEDS: FLUTICASONE/VILANTEROL 1 EACH BLST.W.DEV INH SCH (08:50)
[2020-07-26 12:00] VITALS: BP 125/48
[2020-07-26 16:00] VITALS: BP 126/48
[2020-07-26 20:33] VITALS: BP 121/43
--- NOTE | 2020-07-26 22:02 | NUR ---
AAOx4 No distress noted OOB to bedside commode with assist. Voiding well. All due meds given as ordered. Right hip incision healing well with steristrips [employer]. Pain meds given as scheduled. Will monitor patient. VSS.
[2020-07-27] MEDS: ONDANSETRON HCL 4 MG TABLET PO PRN (05:16)
[2020-07-27 05:42] VITALS: BP 138/52
[2020-07-27] MEDS: OXYCODONE HCL 10 MG TAB.SR.12H PO SCH ×3 (05:58→21:04)
[2020-07-27] MEDS: PANTOPRAZOLE SODIUM 40 MG TABLET.DR PO SCH (06:14)
[2020-07-27] MEDS: BLOOD SUGAR DIAGNOSTIC 1 EACH STRIP VI SCH ×4 (06:34→21:04)
--- NOTE | 2020-07-27 06:36 | NUR ---
End of shift notes: patient felt nauseous this am. Zofran given. Needs attended. Pain meds given as well. All needs attended and met. VSS. Accucheck 104. OOB to the bedside commode. Voiding freely. Will monitor patient.
[2020-07-27 07:30] VITALS: BP 126/62
[2020-07-27] MEDS: HYDROCODONE/APAP 10-325 MG TABLET PO PRN (08:22)
[2020-07-27] MEDS: CULTURELLE CAPSULE PO SCH ×2 (08:22→20:20)
[2020-07-27] MEDS: GABAPENTIN 300 MG CAPSULE PO SCH ×4 (08:22→20:20)
[2020-07-27] MEDS: MULTIVITAMINS,THERAPEUTIC TABLET PO SCH (08:23)
[2020-07-27] MEDS: BISACODYL 10 MG SUPP.RECT RC SCH (08:23)
[2020-07-27] MEDS: GLUCERNA SHAKE VANILLA 237 ML CAN PO SCH ×2 (08:23→16:48)
[2020-07-27] MEDS: LIDOCAINE 5% PATCH TD SCH (08:23)
[2020-07-27] MEDS: FLUTICASONE/VILANTEROL 1 EACH BLST.W.DEV INH SCH (08:38)
[2020-07-27] MEDS ORDERED: MAGNESIUM HYDROXIDE 30 ML LIQUID UDC PO PRN (08:56)
[2020-07-27 15:50] VITALS: BP 109/40
[2020-07-27 20:34] VITALS: BP 122/46
--- NOTE | 2020-07-27 21:08 | NUR ---
Received pt resting in bed. AAO x4. No acute distress noted. C/o 8/10 pain on the left hip, routine pain med and other due meds given as ordered. Accucheck 220 via pt's own insulin pump, which she did coverage on. Safety measures maintained. Call light and personal items within reach. Will continue to monitor.
[2020-07-28] MEDS: OXYCODONE HCL 10 MG TAB.SR.12H PO SCH ×3 (05:00→21:16)
[2020-07-28 05:48] VITALS: BP 115/56
[2020-07-28] MEDS: PANTOPRAZOLE SODIUM 40 MG TABLET.DR PO SCH (06:07)
[2020-07-28] MEDS: ONDANSETRON HCL 4 MG TABLET PO PRN ×2 (06:33→13:21)
[2020-07-28] MEDS: BLOOD SUGAR DIAGNOSTIC 1 EACH STRIP VI SCH ×4 (07:28→21:20)
[2020-07-28] MEDS: GLUCERNA SHAKE VANILLA 237 ML CAN PO SCH ×2 (08:40→17:49)
[2020-07-28] MEDS: GABAPENTIN 300 MG CAPSULE PO SCH ×4 (08:49→21:14)
[2020-07-28] MEDS: FLUTICASONE/VILANTEROL 1 EACH BLST.W.DEV INH SCH (08:49)
[2020-07-28] MEDS: BISACODYL 10 MG SUPP.RECT RC SCH (08:49)
[2020-07-28] MEDS: MULTIVITAMINS,THERAPEUTIC TABLET PO SCH (08:49)
[2020-07-28 08:50] VITALS: BP 106/72
[2020-07-28] MEDS: LIDOCAINE 5% PATCH TD SCH (08:50)
[2020-07-28] MEDS: HYDROCODONE/APAP 10-325 MG TABLET PO PRN (08:52)
[2020-07-28] MEDS: CULTURELLE CAPSULE PO SCH ×2 (08:52→21:00)
[2020-07-28 12:00] VITALS: BP 127/53
[2020-07-28 15:59] VITALS: BP 119/69
[2020-07-28] MEDS: SIMETHICONE 80 MG TAB.CHEW PO PRN (18:38)
--- NOTE | 2020-07-28 19:01 | NUR ---
EOSS: Pt in bed, watching TV, A&Ox4, able to verbalize needs throughout shift. No acute distress noted. Pt denies pain/discomfort at this time. VSS. Pt reported feeling nauseated with no emesis this afternoon, PRN Zofran administered per order. Pt initially stated nausea not improved, still no emesis. Upon further reassessment, pt stated improvement of nausea, no emesis. Due medications given per order. Pt utilizes self insulin pump for accucheck, last BS 117, no coverage. MD Dr. Chase aware of noon BS of 221, no new orders. Safety measures and fall precautions maintained. Call light and belongings within reach. Will endorse care to caustic cresylate shift superintendent nurse.
[2020-07-28 20:12] VITALS: BP 112/44
--- NOTE | 2020-07-28 22:26 | NUR ---
Received pt resting in bed. AAO x4. No acute distress noted. C/o 7/10 pain on the left hip, and leg routine pain med and other due medication administered as ordered. Accu-check done 185 via pt's own insulin pump, which she did coverage on by herself,and tolerated well no s/s of hypo or hyperglycemia noted Safety measures maintained. Call light and personal items within reach. Will continue to monitor.
[2020-07-29] MEDS: HYDROCODONE/APAP 10-325 MG TABLET PO PRN ×3 (02:06→18:27)
--- NOTE | 2020-07-29 05:12 | NUR ---
Patient AAOx4 complain of pain PRN pain meds administered assist with comfortable position helped to relieved the pain, Slept well throughout the night, turned and repositioned, both heels offloaded. Needs attended. Continent of bowel and bladder. Safety measures taken all time. Kept call light with in reach.
[2020-07-29 05:24] VITALS: BP 104/43
[2020-07-29] MEDS: OXYCODONE HCL 10 MG TAB.SR.12H PO SCH ×3 (06:07→21:23)
[2020-07-29] MEDS: PANTOPRAZOLE SODIUM 40 MG TABLET.DR PO SCH (06:07)
[2020-07-29] MEDS: SIMETHICONE 80 MG TAB.CHEW PO PRN ×2 (06:19→17:06)
[2020-07-29] MEDS: BLOOD SUGAR DIAGNOSTIC 1 EACH STRIP VI SCH ×4 (06:36→21:29)
[2020-07-29 07:32] VITALS: BP 113/47
[2020-07-29] MEDS: CULTURELLE CAPSULE PO SCH ×2 (09:00→21:00)
[2020-07-29] MEDS: MULTIVITAMINS,THERAPEUTIC TABLET PO SCH (09:21)
[2020-07-29] MEDS: GABAPENTIN 300 MG CAPSULE PO SCH ×4 (09:21→21:17)
[2020-07-29] MEDS: BISACODYL 10 MG SUPP.RECT RC SCH (09:23)
[2020-07-29] MEDS: LIDOCAINE 5% PATCH TD SCH (09:23)
[2020-07-29] MEDS: GLUCERNA SHAKE VANILLA 237 ML CAN PO SCH ×2 (09:23→17:22)
[2020-07-29] MEDS: FLUTICASONE/VILANTEROL 1 EACH BLST.W.DEV INH SCH (09:25)
[2020-07-29 15:48] VITALS: BP 115/39
[2020-07-29] MEDS: ONDANSETRON HCL 4 MG TABLET PO PRN (17:03)
[2020-07-29 20:17] VITALS: BP 121/49
--- NOTE | 2020-07-29 22:17 | NUR ---
Patient AAOx4 watching TV, complain of pain 10/10 on left hip and mention headache 6/10 on pain scale, routine pain medication administered as ordered, assist with comfortable position helped to relieved the pain, assisted patient to bedside commode, Continent of bowel and bladder,Accu check done 203 via patients own insulin pump, which she did cover by herself,all needs anticipated, turned and repositioned, both heels offloaded. Safety measures taken all time. Kept call light with in reach. continue with plan of care.
[2020-07-30 04:22] VITALS: BP 102/39
[2020-07-30] MEDS: OXYCODONE HCL 10 MG TAB.SR.12H PO SCH ×2 (06:21→13:18)
[2020-07-30] MEDS: PANTOPRAZOLE SODIUM 40 MG TABLET.DR PO SCH (06:58)
[2020-07-30] MEDS: SIMETHICONE 80 MG TAB.CHEW PO PRN (06:59)
[2020-07-30] MEDS: BLOOD SUGAR DIAGNOSTIC 1 EACH STRIP VI SCH ×2 (07:00→12:30)
[2020-07-30 08:00] VITALS: BP 125/38
[2020-07-30] MEDS: GLUCERNA SHAKE VANILLA 237 ML CAN PO SCH (08:53)
[2020-07-30] MEDS: BISACODYL 10 MG SUPP.RECT RC SCH (09:00)
[2020-07-30] MEDS: CULTURELLE CAPSULE PO SCH (09:00)
[2020-07-30] MEDS: GABAPENTIN 300 MG CAPSULE PO SCH ×2 (09:05→13:12)
[2020-07-30] MEDS: MULTIVITAMINS,THERAPEUTIC TABLET PO SCH (09:05)
[2020-07-30] MEDS: LIDOCAINE 5% PATCH TD SCH (09:05)
[2020-07-30] MEDS: FLUTICASONE/VILANTEROL 1 EACH BLST.W.DEV INH SCH (09:06)
[2020-07-30] MEDS: HYDROCODONE/APAP 10-325 MG TABLET PO PRN (11:06)
--- NOTE | 2020-07-30 12:33 | NUR ---
Received a discharge order to [facility] from Dr. Tovar discharge. Patient made aware and is agreeable.
[2020-07-30] MEDS: ONDANSETRON HCL 4 MG TABLET PO PRN (13:56)
--- NOTE | 2020-07-30 15:10 | NUR ---
Discharge instructions provided to the patient with verbalized understanding. Discharge papers signed by and provided to the patient. All belongings well accounted for. Patient remains alert, oriented x 4, not in any form of distress, on room air. Surgical incision well coaptated, clean and dry, no signs or symptoms of infection. She denies any pain or discomfort at this time. Stable vital signs. Report given to Lupe CHAMBERLAIN at [facility]. Patient discharged to [facility], picked up by [facility] ambulance transferred via gurney.
== END 2020-07-30 15:10 | DRG 559 ==
PROVIDERS: ADMIT Physical Medicine & Rehabilitation Pain Medicine; ATTEND Physical Medicine & Rehabilitation Pain Medicine
DX: S72.142D Displaced intertrochanteric fracture of left femur, subsequent encounter for closed fracture with routine healing (principal); J18.9 Pneumonia, unspecified organism; D68.59 Other primary thrombophilia; W18.30XD Fall on same level, unspecified, subsequent encounter; K21.9 Gastro-esophageal reflux disease without esophagitis; Z79.4 Long term (current) use of insulin; Z96.41 Presence of insulin pump (external) (internal); D64.9 Anemia, unspecified; E11.65 Type 2 diabetes mellitus with hyperglycemia; E66.9 Obesity, unspecified; Z68.32 Body mass index [BMI] 32.0-32.9, adult; J45.909 Unspecified asthma, uncomplicated; Z20.822 Contact with and (suspected) exposure to COVID-19; Z98.1 Arthrodesis status; K86.89 Other specified diseases of pancreas; M19.90 Unspecified osteoarthritis, unspecified site; Z88.2 Allergy status to sulfonamides; Z88.8 Allergy status to other drugs, medicaments and biological substances
CPT/HCPCS: 36415; 73501; 73700; 85025; 87077; 87086; J3301; J3490; Q0162